=== PATIENT | female | born 1995 | race Caucasian/White ===

== ENCOUNTER → 2024-03-21 | Outpatient (CLI) | payer OTHER, SELFPAY ==
[2024-03-21 16:40] LABS: Absolute Lymphocyte Count 2.11 X10^3/uL (0.83-4.51); Absolute Neutrophil Count 11.4 X10^3/uL (2.0-7.7); Basophil# 0.05 X10^3/uL; Basophil% 0.3 % (0-1); Eosinophil# 0.08 X10^3/uL; Eosinophils% 0.6 % (0-5); Hematocrit 38.1 % (37-47); Hemoglobin 13.2 g/dL (12.0-15.0); Lymphocyte # 2.11 X10^3/ul (0.83-4.51); Lymphocyte % 14.6 % (19-41); Mean Corp Hgb Conc 34.6 g/dL (32-36); Mean Corpuscular Hgb 29.2 pg (27.0-32.0); Mean Corpuscular Volume 84.3 fL (81-99); Mean Platelet Vol. 9.9 fl (6.2-12.0); Monocyte# 0.74 X10^3/uL; Monocyte% 5.1 % (0-10); NRBC Flagged by Analyzer 0 % (0-5); Neutrophil # 11.44 X10^3/uL (2.7-7.7); Neutrophil % 79.1 % (47-70); Platelet Count 259 K/mm3 (150-450); RBC Distribution Width CV 11.8 % (11.6-14.6); Red Blood Count 4.52 M/mm3 (4.2-5.4); White Blood Count 14.5 K/mm3 (4.4-11.0)
[2024-03-21 17:18] LABS: HIV - WCH Non-Reactive (Nonreactive); Hepatitis B Surface Antigen Non-Reactive (Nonreactive); Hepatitis C Antibody Non-Reactive (Nonreactive); Rubella IgG Reactive (Nonreactive); Syphilis Antibodies Non-reactive
== END | disposition home or self-care (01) ==
PROVIDERS: Referring Provider Registered Nurse; Visit Provider Registered Nurse
DX: Z34.00 Encounter for supervision of normal first pregnancy, unspecified trimester (principal)
CPT/HCPCS: 36415; 85025; 86703; 86762; 86780; 86803; 86850; 86900; 86901; 87086; 87088; 87186; 87340

== ENCOUNTER 2024-08-23 22:05 | Outpatient (CLI) | payer OTHER, SELFPAY ==
--- OUTSIDE RECORDS SUMMARY | 2024-08-23 22:17 | XMS RPT_ITS | CCD ---
Author Organization [facility] Care Team Providers Care Vp Integration Name Role Phone Xochilt Rush Attending Unavailable NOT, DEFINED Primary Care Unavailable Luana Gastelum Attending Unavailable Xochilt Rush Referring Unavailable Xochilt Rush Attending Unavailable NOT, DEFINED Primary Care Unavailable Problems Problem Classification Problem Date Documented Da te Episodic/Chronic Other and delivery including normal (1 source) Encounter for supervision of normal first , unspecified trimester; Translations: [Encounter for supervision of normal first , unspecified trimester] Onset: 04-07-2024 Episodic Results Test Name Value Interpretation Reference Range Facil ity Urine Cultureon 03-23-2024 URC Presumptive E. coli [place] Count 25,000-50,000 Presumptive E. coli: REACTION Ampicillin Islt DESTIN >=32 Ampicillin+Sulbac Islt DESTIN 4 S Cefepime Islt DESTIN <=0.12 S cefTRIAXone Islt DESTIN <=0.25 S Ciprofloxacin Islt DESTIN >=4 R B-Lactamase Extended Susc Islt NEG Gentamicin Islt DESTIN <=1 S levoFLOXacin Islt DESTIN >=8 R Meropenem Islt DESTIN <=0.25 S Nitrofurantoin Islt DESTIN <=16 S Pip+Tazo Islt DESTIN <=4 S TMP SMX Islt DESTIN <=20 S Normal [facility] Comment on above: Performed By: #### M 100.2200 #### [facility] [address] [place], [place], [id number] CBC W/Diff, Automatedon Absolute Lymph 2.11 X10 3/uL Normal 0.83-4.51 [facility] Comment on above: Performed By: #### L 3890.6300, L509.8000, BTS, L509.4005, L3890.6005, L3890.6100, L100.0100 #### [facility] [address] [place], [address] Absolute Neut 11.4 X10 3/uL High 2.0-7.7 [facility] Comment on above: Performed By: #### L 3890.6300, L509.8000, BTS, L509.4005, L3890.6005, L3890.6100, L100.0100 #### [facility] [address] [place], [address] Basophils/100 WBC (Bld) 0.3 % Normal 0-1 [facility] Comment on above: Performed By: #### L 3890.6300, L509.8000, BTS, L509.4005, L3890.6005, L3890.6100, L100.0100 #### [facility] [address] [place], [address] Eosinophils/100 WBC (Bld) 0.6 % Normal 0-5 [facility] Comment on above: Performed By: #### L 3890.6300, L509.8000, BTS, L509.4005, L3890.6005, L3890.6100, L100.0100 #### [facility] [address] [place], [address] Erythrocyte distribution width (RBC) [Ratio] 11.8 % Normal 11.6-14.6 [facility] Comment on above: Performed By: #### L 3890.6300, L509.8000, BTS, L509.4005, L3890.6005, L3890.6100, L100.0100 #### [facility] [address] [place], [address] Hematocrit (Bld) [Volume fraction] 38.1 % Normal 37-47 [facility] Comment on above: Performed By: #### L 3890.6300, L509.8000, BTS, L509.4005, L3890.6005, L3890.6100, L100.0100 #### [facility] [address] [place], [address] Hemoglobin (Bld) [Mass/Vol] 13.2 g/dL Normal 12.0-15.0 [facility] Comment on above: Performed By: #### L 3890.6300, L509.8000, BTS, L509.4005, L3890.6005, L3890.6100, L100.0100 #### [facility] [address] [place], [address] IG% 0.300 Normal 0.0-0.9 [facility] Comment on above: Result Comment: IG% - Immature Granulocytes (promyelocytes, myelocytes and metamyelocytes) > 1% indicates that a LEFT SHIFT is Present. Performed By: #### L 3890.6300, L509.8000, BTS, L509.4005, L3890.6005, L3890.6100, L100.0100 #### [facility] [address] [place], [address] Lymphocytes/100 WBC (Bld) 14.6 % Low 19-41 [facility] Comment on above: Performed By: #### L 3890.6300, L509.8000, BTS, L509.4005, L3890.6005, L3890.6100, L100.0100 #### [facility] [address] [place], [address] MCH (RBC) [Entitic mass] 29.2 pg Normal 27.0-32.0 [facility] Comment on above: Performed By: #### L 3890.6300, L509.8000, BTS, L509.4005, L3890.6005, L3890.6100, L100.0100 #### [facility] [address] [place], [address] MCHC (RBC) [Mass/Vol] 34.6 g/dL Normal 32-36 [facility] Comment on above: Performed By: #### L 3890.6300, L509.8000, BTS, L509.4005, L3890.6005, L3890.6100, L100.0100 #### [facility] [address] [place], [address] MCV (RBC) [Entitic vol] 84.3 fL Normal 81-99 [facility] Comment on above: Performed By: #### L 3890.6300, L509.8000, BTS, L509.4005, L3890.6005, L3890.6100, L100.0100 #### [facility] [address] [place], [address] Monocytes/100 WBC (Bld) 5.1 % Normal 0-10 [facility] Comment on above: Performed By: #### L 3890.6300, L509.8000, BTS, L509.4005, L3890.6005, L3890.6100, L100.0100 #### [facility] [address] [place], [address] Neutrophils/100 WBC (Bld) 79.1 % High 47-70 [facility] Comment on above: Performed By: #### L 3890.6300, L509.8000, BTS, L509.4005, L3890.6005, L3890.6100, L100.0100 #### [facility] [address] [place], [address] Nucleated RBC (Bld) [#/Vol] 0 10*3/uL Normal 0-5 [facility] Comment on above: Performed By: #### L 3890.6300, L509.8000, BTS, L509.4005, L3890.6005, L3890.6100, L100.0100 #### [facility] [address] [place], [address] Platelet mean volume (Bld) [Entitic vol] 9.9 fL Normal 6.2-12.0 [facility] Comment on above: Performed By: #### L 3890.6300, L509.8000, BTS, L509.4005, L3890.6005, L3890.6100, L100.0100 #### [facility] [address] [place], [address] Platelets (Bld) [#/Vol] 259 10*3/uL Normal 150-450 [facility] Comment on above: Performed By: #### L 3890.6300, L509.8000, BTS, L509.4005, L3890.6005, L3890.6100, L100.0100 #### [facility] [address] [place], [address] RBC (Bld) [#/Vol] 4.52 10*6/uL Normal 4.2-5.4 [facility] Comment on above: Performed By: #### L 3890.6300, L509.8000, BTS, L509.4005, L3890.6005, L3890.6100, L100.0100 #### [facility] [address] [place], [address] RDW SD 36.0 fl Normal 35.1-43.9 [facility] Comment on above: Performed By: #### L 3890.6300, L509.8000, BTS, L509.4005, L3890.6005, L3890.6100, L100.0100 #### [facility] [address] [place], [address] WBC (Bld) [#/Vol] 14.5 10*3/uL High 4.4-11.0 [facility] Comment on above: Performed By: #### L 3890.6300, L509.8000, BTS, L509.4005, L3890.6005, L3890.6100, L100.0100 #### [facility] [address] [place], [place], [id number] HIV - WCHon 03-21-2024 HIV Non-Reactive Normal Nonreactive [facility] Comment on above: Order Comment: Reaso n for Exam: Performed By: #### L 3890.6300, L509.8000, BTS, L509.4005, L3890.6005, L3890.6100, L100.0100 #### [facility] [address] [place], [place], [id number] Hepatitis B Surface Antigeno n 03-21-2024 HEP B Surf Ag Non-Reactive Normal [facility] Comment on above: Order Comment: Reaso n for Exam: Performed By: #### L 3890.6300, L509.8000, BTS, L509.4005, L3890.6005, L3890.6100, L100.0100 #### [facility] [address] [facility] [place], [place], [id number] Hepatitis C Antibodyon 03-21 Hepatitis C AB Non-Reactive Normal [facility] Comment on above: Order Comment: Reaso n for Exam: Result Comment: Non Reactive: < 0.8 Equivocal: >/= 0.8 to < 1.0 Reactive: >/= 1.0 The CDC requires that a reactive/equivocal HCV antibody result be sent out for confirmation. HCV Quant by PCR testing. Performed By: #### L 3890.6300, L509.8000, BTS, L509.4005, L3890.6005, L3890.6100, L100.0100 #### [facility] [address] 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 Office Visit Report [facility] [address], [address] [place] [address] OFFICE VISIT Date of Service: 03/21/24 MR#: [id number] Acct: [id number] Name: CECIL ROMANO Rep #: [id number] : 1995 Provider: DONNELL curran Age/Sex: 28/F [place] [facility] [place]: Signed Intake Vital Signs 03/21/24 13:08 03/21/24 14:04 Height 5 ft 4 in Weight: 136 lb 6 oz BMI 23.3 BP 133/90 H 123/87 H Intake Visit Reasons: NEW OB 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: No Is patient in pain?: No Allergies No Known Allergies Allergy (Verified 03/21/24 13:08) Medications ???Medication ???Instructions ???Recorded ???Confirmed ???Type multivitamin no.47-iron fum 27 cap PO 03/07/24 03/07/24 History mg-folate no.1 1 mg-dha 300 mg capsule (PNV-DHA) vitamin B complex 1 cap PO QDAY 03/07/24 03/07/24 Hi story Last Menstrual Period: 01/09/24 Zika: Zika virus screening: Negative : No Have you fallen in the past year?: No PFSH PFSH Surgical History H/O inguinal hernia repair Family History Mother Hypertension Social History adopted: No household members: spouse current occupational status: employed 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 current occupational exposures/hazards: No pets and animals: Yes (Outside-2 cats) pets and animals: cat(s) history of recent travel: No sexually active: Yes Smoking Status: Never smoker alcohol intake: current alcohol intake frequency: holidays/special occasions only details: not while substance use type: does not use well-balanced diet: daily or most days caffeine: Yes Type: coffee Number of servings: 1 eating out: rarely or never during the past year weight has: decreased > 10 lbs what type of physical activity do you participate in: walking and other details: body weight exercises frequency: daily duration: 15-30 minutes/day joanne/mormon: Buddhist seatbelt use: sometimes do you feel safe at home: Yes additional 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 OB Visit NORBERTO Calculator Estimated Delivery Date Method Current WG Current Estimate 10/15/24 LMP (Certain) 10w 2d Comments: HIV: Urine Culture: Sequential Screen: NIPT Screen: Estimated Due Date: 10/15/24 Expected Delivery Route/Plan Labor Preferences- CB/BF classes: [] labor support person: [] labor intervention preferences: [] pain management options preferred: [] cut cord/dad catch: [] : [] PP control planned: [] discussed possible routes of delivery and associated risks: [] special requests: [] Specific Issue/Plans Covid status: [] Flu vaccine: [] Tdap vaccine: [] Rhogam: [] LARC form signed: [] Problem list reviewed and updated with the most current plan of care details and appropriate orders placed. Relevant counseling for the gestational age provided. Continue routine care and follow up unless otherwise noted in visit notes/problem list details Initial Weight: 136 lb Date -???-???-???-???-???-? ??-???-???-???-???-??? -???- EGA Weight BP Urine Prot -???-???-???-???-???-? ??-???-???-???-???-??? -???- Glucose FHR FuHt Pres Dilation -???-???-???-???-???-? ??-???-???-???-???-??? -???- Effaced St Visit Note 03/21/24 -???-???-???-???-???-? ??-???-???-???-???-??? -???- 10w 2d 136 lb 6 oz (+6 oz) 133/90 123/87 -???-???-???-???-???-? ??-???-???-???-???-??? -???- 168 -???-???-???-???-???-? ??-???-???-???-???-??? -???- LC- crl con with LMP. declines nipt/carrier screening. declines pap smear. gc/ct due with dirty catch next visit as declines any vaginal exam. LC- crl 1.3cm con with LMP. declin es nipt/carrier screening. declines pap smear. gc/ct due with dirty catch next visit as declines any vaginal exam. LC- crl 1.3cm con with LMP. declin es nipt/carrier screening. declines pap smear. gc/ct due with dirty catch next visit as declines any vaginal exam d/t hx of undisclosed trauma. Menstrual History Last Menstrual Period: 01/09/24 Reported LMP: definite Frequency in days: 27-29 days Antepartum Record Genetic Screening: Congenital Heart Defect: Other, Neural Tube Defect: Other, Hemoglobinopathy Or Carrier: Other, Cystic Fibrosis: Other, Chromosome Abnormality: Other, Ru-Sachs: Other, Hemophilia: Other, Intellectual Disability/Autism: Other, Recurrent Loss/Stillbirth: (more content not included)... Normal [facility] Rubella IgGon 03-21-2024 Rubella IgG Reactive Normal Nonreactive [facility] Comment on above: Order Comment: Reaso n for Exam: Result Comment: Anti body Results Interpretation of Immune Status Non Reactive Presumed Non-Immune Equivocal Equivocal Reactive Presumed Immune Performed By: #### L 3890.6300, L509.8000, BTS, L509.4005, L3890.6005, L3890.6100, L100.0100 #### [facility] [address] [place], [address] Type AND Screenon 03-21-2024 Ab SCREEN GEL Negative Normal [facility] Comment on above: Order Comment: PN Performed By: #### L 3890.6300, L509.8000, BTS, L509.4005, L3890.6005, L3890.6100, L100.0100 #### [facility] [address] [place], [address] Encounters Encounter Date Encounter Type Care Provider Facility Start: 05-06-2024 ambulatory DEFINED NOT Facility:[facility] Start: 03-21-2024 End: 03-21-[place] [facility] [place] [place] Start: 03-21-2024 End: 03-21-2024 [facility] Facility:[facility] Payers Date Payer Category Payer Self-pay 2024 Unknown [id number] Unknown [id number] Unknown [id number] Unknown [id number] Summary Purpose Family History No Family History Records Found Advance Directives No Advanced Directives Records Found Additional Source Comments INFORMATION SOURCE (unrecogn ized section and content) DATE CREATED AUTHOR 05/04/2024 [facility] FOR RECORDS PERTAINING TO PATIENTS WHO ARE OR HAVE BEEN ENROLLED IN A CHEMICAL DEPENDENCY/SUBSTANCEABUSE PROGRAM, SOME INFORMATION MAY BE OMITTED. This clinical summary was aggregated from multiple sources. Caution should be exercised in using it in the provision of clinical care. This summary normalizes information from multiple sources, and as a consequence, information in this document may materially change the coding, format and clinical context of patient data. In addition, data may be omitted in some cases. CLINICAL DECISIONS SHOULD BE BASED ON THE PRIMARY CLINICAL RECORDS. [facility]. provides no warranty or guarantee of the accuracy or completeness of information in this document.
[2024-08-23 22:31] VITALS: BP 102/55; PULSE 96; RESP 18; TEMP 36.7; O2SAT 98
[2024-08-23 22:36] VITALS: PULSE 93; O2SAT 99; BMI 26.3
[2024-08-23 22:50] LABS: Color, Urine Yellow (Yellow); Glucose, Dipstick Normal (Normal); Leukocyte Esterase-Dipstick 25 /ul (Negative); Nitrite-Dipstick Negative (Negative); Occult Blood-Urine 25 /ul (Negative); Protein-Dipstick 30 mg/dl (Negative); Specific Gravity, Urine 1.020 (1.002-1.030); Urine Bilirubin Dipstick Negative (Negative)
[2024-08-23 23:02] LABS: Ketone-Dipstick 150 mg/dl (Negative)
[2024-08-23] MEDS: Lactated Ringers 500 ML 999 ML IV (23:16)
--- NOTE | 2024-08-24 00:12 | US_ITS ---
PROCEDURE: KIDNEY AND BLADDER 08/23/2024 REASON FOR EXAM: R/O KIDNEY STONE TECHNIQUE: KIDNEY AND BLADDER COMPARISON: None. FINDINGS: Right kidney measures 20.0 cm. Left kidney measures 12.3 cm. Moderate right mild left hydroureteronephrosis. The urinary bladder is unremarkable. US/Kidney and Bladder IMPRESSION: Bilateral hydronephrosis. Reading Location: [place] [address]
[2024-08-24 04:10] VITALS: BP 85/52; PULSE 85; PULSE 94; O2SAT 96
[2024-08-24 04:12] VITALS: RESP 16; TEMP 37
[2024-08-24 04:13] VITALS: BP 101/59; PULSE 108
--- NOTE | 2024-09-05 16:38 | OB.TRI.HP_ITS ---
HPI - General General Date of Admission: 08/23/24 HPI Narrative CECIL ROMANO, is a 28 F who presents as a community advocate patient at 32.3 weeks with right flank pain with nausea and vomiting. denies fevers. Maternal Data Information NORBERTO Calculator Estimated Delivery Date Method Current WG Current Estimate 10/15/24 Manual 34w 2d PFSH PFSH Medical History (Updated 09/05/24 @ 16:40 by Xochilt Rush CNM) Nephrolithiasis Pyelonephritis affecting Home Medications ?Medication ?Instructions ?Recorded ?Last Taken ?Type multivitamin no.47-iron fum 27 1 cap PO DAILY pregnanc y 03/07/24 08/22/24 History mg-folate no.1 1 mg-dha 300 mg capsule (PNV-DHA) vitamin B complex 1 cap PO QDAY 03/07/2408/20 History famotidine 20 mg tablet (Pepcid) 20 mg PO BID #60 tabs 09/01/24 Unknown Rx Allergy/AdvReac Type Severity Reaction Status Date / Time No Known Allergies Allergy Verified 09/01/24 14:06 Family History Mother Hypertension Surgical History H/O inguinal hernia repair Social History adopted: No household members: spouse current occupational status: employed 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 current occupational exposures/hazards: No pets and animals: Yes (Outside-2 cats) pets and animals: cat(s) history of recent travel: No sexually active: Yes Smoking Status: Never smoker alcohol intake: current alcohol intake frequency: holidays/special occasions only details: not while substance use type: does not use well-balanced diet: daily or most days caffeine: Yes Type: coffee Number of servings: 1 eating out: rarely or never during the past year weight has: decreased > 10 lbs what type of physical activity do you participate in: walking and other details: body weight exercises frequency: daily duration: 15-30 minutes/day joanne/uatsdin: Mormon seatbelt use: sometimes do you feel safe at home: Yes 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 1 Elective abortions Hx Para 0 Spontaneous abortions Hx # Term Pregnancies Ectopic pregnancies Hx # Pregnancies Multiple births # of living children Visit Details Expected Delivery Route/Plan Labor Preferences- CB/BF classes: [] labor support person: [] labor intervention preferences: [] pain management options preferred: [] cut cord/dad catch: [] : [] PP control planned: [] discussed possible routes of delivery and associated risks: [] special requests: [] Plans Covid status: [] Flu vaccine: [] Tdap vaccine: [] Rhogam: [] LARC form signed: [] Problem list reviewed and updated with the most current plan of care details and appropriate orders placed. Relevant counseling for the gestational age provided. Continue routine care and follow up unless otherwise noted in visit notes/problem list details OB Flowsheet Initial Weight: Not Recorded Date -?-?-?-?-?-?-?-?-?-?-?-?- EGA Weight BP Urine Prot -?-?-?-?-?-?-?-?-?-?-?-?- Glucose FHR FuHt Pres Dilation -?-?-?-?-?-?-?-?-?-?-?-?- Effaced St Visit Note 09/01/24 -?-?-?-?-?-?-?-?-?-?-?-?- 33w 5d 161 lb 6 oz 110/73 -?-?-?-?-?-?-?-?-?-?-?-?- 150 32 Cephalic -?-?-?-?-?-?-?-?-?-?-?-?- SM- discharged maikel ley from [facility]. no vb lof good fm no regular ctx NST FHR Rate Baby A Baseline: 145 Uterine Activity:: none Assessment & Plan (1) Right flank pain: PLAN: Plan Patient presents for triage evaluation secondary to right flank pain. negative kidney stones, improved pain with fluids and morphine. potentially stone that passed. FHT: Moderate variability reactive no decelerations category I tracing [employer]: no Contractions Assessment and plan: Reactive NST, reassuring maternal and status patient discharged to home to follow-up if fever presents, pain is not improved. follow up with community advocate. . See problem list details for additional plan information. Charges/Coding Multi Select Codes Urinary/Genital Urinary/Genital CPT Codes: 93372-21 non-stress test Interp
== END 2024-08-24 04:20 | disposition home or self-care (01) ==
LOC: WPOUT 22:15 → WP 22:16
PROVIDERS: Visit Provider Registered Nurse
DX: O26.893 Other specified pregnancy related conditions, third trimester (principal); R10.9 Unspecified abdominal pain; O21.2 Late vomiting of pregnancy; Z3A.32 32 weeks gestation of pregnancy
CPT/HCPCS: 96374; 96375 ×2; 96376; 96361; 59025; 59050; 76770; 81002; 99221; G0378; J2405

== ENCOUNTER 2024-08-25 00:59 | Inpatient (IN) | payer OTHER, SELFPAY ==
[2024-08-24] VITALS (94 sets, daily range): BP systolic 79–108; BP diastolic 40–57; PULSE 90–199; RESP 20–40; TEMP 36.8–39.2; O2SAT 82–98; BMI 26.4
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
[2024-08-24] MEDS: Lactated Ringers 1,000 ML 999 ML IV ×2 (14:47→18:18)
[2024-08-24 15:20] LABS: Hematocrit 32.9 % (37-47); Hemoglobin 11.4 g/dL (12.0-15.0); Immature Granulocytes Count 0.260 X10^3/uL (0.0-0.0); Mean Corp Hgb Conc 34.7 g/dL (32-36); Mean Corpuscular Volume 84.4 fL (81-99); Mean Platelet Vol. 9.7 fl (6.2-12.0); NRBC Flagged by Analyzer 0 % (0-5); POSITIVE DIFFERENTIAL YES; Platelet Count 150 K/mm3 (150-450); RBC Distribution Width CV 12.1 % (11.6-14.6); RBC Distribution Width SD 36.7 fl (35.1-43.9); Red Blood Count 3.90 M/mm3 (4.2-5.4); White Blood Count 26.6 K/mm3 (4.4-11.0)
[2024-08-24 15:23] LABS: Differential Indicated SCAN CRITERIA MET
[2024-08-24] MEDS: Lactated Ringers 1,000 ML 150 ML IV (15:38)
[2024-08-24 15:48] LABS: AST(SGOT) 22 U/L (<=31); Alanine Aminotransfer ALT/SGPT 15 U/L (<=34); Albumin, Serum 3.4 g/dL (3.5-5.0); Alkaline Phosphatase 220 U/L (35-104); Anion Gap 12 (5-15); BUN 8 mg/dL (4-19); BUN/Creat Ratio 8.1 RATIO (10-20); Calcium,Total 8.9 mg/dL (7.6-11.0); Carbon Dioxide 20.0 mmol/L (21.0-32.0); Chloride 102 mmol/L (98-108); Estimated Creatinine Clearance 77.42 ml/min (50-250); Globulin 3.0 g/dL (2.2-4.2); Glucose 114 mg/dL (70-99); Lipase 17 U/L (13-75); Potassium 3.6 mmol/L (3.3-5.1)
[2024-08-24 16:47] LABS: Differential Comment SCANNED
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
[2024-08-24 18:45] LABS: Partial Thromboplast Time 28.7 Seconds (24.1-36.2); Prothrombin Time (Protime)PT. 14.7 SECONDS (11.7-14.9)
[2024-08-24 19:21] LABS: Anion Gap 13 (5-15); BUN 8 mg/dL (4-19); BUN/Creat Ratio 7.9 RATIO (10-20); Calcium,Total 8.9 mg/dL (7.6-11.0); Carbon Dioxide 20.8 mmol/L (21.0-32.0); Chloride 100 mmol/L (98-108); Estimated Creatinine Clearance 73.80 ml/min (50-250); Glucose 117 mg/dL (70-99); Magnesium 1.5 mg/dL (1.5-2.2); Potassium 3.2 mmol/L (3.3-5.1)
[2024-08-24] MEDS: KCL 20MEQ in 0.9% NS 20 MEQ/1,000 ML IV.SOLN. 150 MEQ IV (20:33)
[2024-08-24] MEDS: 0.9% Normal Saline (1000mL) 1,000 ML 1000 ML IV (21:21)
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
[2024-08-24] MEDS: Piperacil/Tazobactam 3.375 GM in 0.9% Normal Saline (50mL MB+) 50 ML IV (21:22)
--- NOTE | 2024-08-24 21:30 | RAD_ITS ---
PROCEDURE: CHEST 1 VIEW (PORTABLE) 08/24/2024 REASON FOR EXAM: TACHYPNEA TECHNIQUE: Frontal view of the chest. COMPARISON: No FINDINGS: Rotated patient. Normal heart size. Well inflated lungs. No consolidation, effusion, or pneumothorax. RAD/Chest 1 View (Portable) IMPRESSION: No acute findings Reading Location: [facility]-
[2024-08-24 22:23] LABS: Reflex Lactate? Y
--- NOTE | 2024-08-24 22:32 | PCM.HOSP.N ---
Hospitalist Note Called by Dr. Mckenzie around 9pm to discuss the patient. Patient is 32 weeks with her first baby. She came in yesterday evening with flank pain and concern for UTI. She had no fevers at the time and BP was normal. Renal ultrasound was obtained and showed bilateral hydronephrosis (common in ), no other abnormalities. Patient was discharged home early in the morning. She presented again this evening now with fever/chills and ongoing flank pain concerning for pyelonephritis. Labs notable for WBC count 26,000 with neutrophil predominance, lactate 2.1. Vitals notable for sinus tachycardia to the 110s, initial BP in the 80s over 40s. Given suspected urosepsis, patient was given an approximate 30 cc/kg fluid bolus of 2.5 L. BP improved to the 100s over 50s. After the fluids, patient was noted to be tachypneic with oxygen saturation dropping to the low 90s so chest x-ray was obtained. Chest x-ray on my read shows only mild vascular congestion, otherwise is unremarkable. I saw the patient at bedside around 9:30 PM. Patient was fatigued and flushed appearing, and heart rate remained in the low 100s on exam. She reported generally feeling ill with malaise. She denied any specific pain or discomfort currently. was present at bedside as well. Patient presentation seems very consistent with urosepsis. Urine culture and blood cultures have been ordered. Patient has received approximately 3 L of IV fluids total. Recommend continuing treatment with IV Zosyn. Can consider small fluid boluses if needed over the course of tonight but if patient becomes hypoxic, would hold on further fluids. If patient does become hypotensive with MAP less than 65, recommend moving patient up to the ICU for initiation of low-dose Levophed. Patient will continue to be monitored closely.
[2024-08-25] VITALS (72 sets, daily range): BP systolic 69–119; BP diastolic 33–80; PULSE 93–148; RESP 25–46; TEMP 36.4–38.6; O2SAT 91–98; BMI 27.8
--- NOTE | 2024-08-25 00:27 | PCM.PN.BLA ---
Progress Note patient reevaluated for decresaed MAP- HR around 100, less tachypnic and feeling better overall, fever has now broke and temp is 98.6. urine output only 200cc. breathing easy with occasional cough, discussed with hospitalist and will give additional liter bolus of fluid, continue close monitoring, physician to remain on floor and reevaluate in 1 hour after fluid bolus. Assessment & Plan Assessment/Plan (1) Sepsis: (2) Pyelonephritis affecting : (3) History of trauma: (4) Supervision of normal first : (5) : QUALIFIERS: Weeks of gestation: 10 weeks Qualified Code(s): Z3A.10 - 10 weeks gestation of (6) Infertility: (7) Family history of recurrent miscarriage:
[2024-08-25] MEDS: 0.9% Normal Saline (1000mL) 1,000 ML 999 ML IV (00:55)
--- NOTE | 2024-08-25 01:03 | PCM.CONS.GEN ---
Assessment & Plan Assessment/Plan (1) Sepsis: (2) Pyelonephritis affecting : PLAN: Plan Patient is a 28-year-old female who presented [facility] on 08/24/2024 with fevers and flank pain concerning for UTI with pyelonephritis and sepsis. 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 Medicine consulted for assistance with medical management. 1. Sepsis secondary to acute pyelonephritis ? ELEVATOR CONSTRUCTOR HELPER service primary. Initial admitted to the [facility] but then transferred up to the ICU for concern for septic shock. UA mildly infectious appearing, renal ultrasound with bilateral hydronephrosis. Met sepsis criteria on admit with hypotension, tachycardia, leukocytosis, elevated lactic acid and presumed urinary source. Given 3.5 L of IV fluids total to this point. Had low BP readings after these fluids to the 70s systolic in the WP, but on arrival to the ICU BP was in the 90s over 50s and is remaining stable. Continue IV Zosyn. Follow-up urine and blood cultures. Okay for low-dose Levophed if needed. 2. Third trimester of first ? Patient is 32 weeks , ELEVATOR CONSTRUCTOR HELPER primary as above. Per OB, baby has been doing well on heart monitoring which will remain in place while patient is hospitalized. 3. Mild hypokalemia ? Potassium 3.2 on admit. Mag 1.5, Phos 2.4. Will replete electrolytes as needed. 4. Normocytic anemia with mild thrombocytopenia ? Hemoglobin 11.4 on admit, dropped to 9.4 after heavy IV fluid resuscitation. Platelet count 112 after IV fluid resuscitation. No active signs of bleeding noted. LFTs are normal. Suspect mild anemia and thrombocytopenia are due to additional plasma volume and blood in setting of . Monitor daily CBC. DVT prophylaxis: Low risk, ambulate Total clinical time spent by myself addressing the patient's medical issues, reviewing all the data, and collaborating with patient's care team: 50 minutes. HPI Consult Data Date of Consult: 08/25/24 HPI Narrative Reason for Consultation: Medical management HPI Narrative: CECIL ROMANO, is a 28 F who presented to [facility] on 08/24/2024 with worsening flank pain and fevers. Patient is 32 weeks and [facility] She was found to have UTI with suspected pyelonephritis and sepsis. Her MAPs were borderline despite adequate IV fluid resuscitation so she was transferred up to the ICU early this morning for further management. Hospitalist was consulted for assistance with management. I [facility] the [facility] this evening, see my quick note for further details. Shortly after arrival to the ICU patient's blood pressures were noted to be in the 90s over 50s. She does remain tachycardic to the 100s to low 110s. 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 current occupational exposures/hazards: No pets and animals: Yes (Outside-2 cats) pets and animals: cat(s) history of recent travel: No sexually active: Yes Smoking Status: Never smoker alcohol intake: current alcohol intake frequency: holidays/special occasions only details: not while substance use type: does not use well-balanced diet: daily or most days caffeine: Yes Type: coffee Number of servings: 1 eating out: rarely or never during the past year weight has: decreased > 10 lbs what type of physical activity do you participate in: walking and other details: body weight exercises frequency: daily duration: 15-30 minutes/day joanne/bahai: Muslim seatbelt use: sometimes do you feel safe at home: Yes 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 Constitutional Constitutional: Reports chills, fatigue, fever(s) and malaise Eyes Eyes: Denies change in vision Cardiovascular Cardiovascular: Denies chest pain Respiratory/Chest Respiratory/Chest: Denies shortness of breath at rest Gastrointestinal Gastrointestinal: Denies abdominal pain Genitourinary Genitourinary: Reports dysuria and other Details: Right flank pain Physical Exam Const alert, oriented x3 and average body habitus Constitutional Narrative: Young Oriental Orthodox female, 32 weeks , fatigued and flushed appearing, otherwise laying back in bed and answering questions appropriately. General Appearance: cooperative HEENT normocephalic, head/scalp atraumatic, hearing grossly normal bilaterally, nasal mucous membranes and turbinates normal and moist oral mucous membranes Eyes PERRL, EOMs intact bilaterally and conjunctivae normal Neck full ROM Chest inspection of chest normal Resp normal respiratory effort, normal air movement, no use of accessory muscles and clear to auscultation bilaterally Cardio no murmurs and peripheral pulses 2+ throughout Cardio Narrative: Tachycardic, regular rhythm. GI normal to inspection, nondistended, normoactive bowel sounds, soft to palpation, non-tender and non-distended Narrative: 32 weeks . heart monitoring in place. Bladder / Kidney Exam: bladder normal to palpation and CVA tenderness right Back/Spine normal ROM Extremity normal to inspection, full ROM and no pedal edema Skin no rashes or lesions noted Psych mental status grossly normal Lab / Micro Data 08/25/24 01:25 08/25/24 01:25 Labs: Laboratory Results - last 24 hr 08/24/24 14:45: WBC 26.6 H, RBC 3.90 L, Hgb 11.4 L, Hct 32.9 L, MCV 84.4, MCH 29.2, MCHC 34.7, RDW Std Deviation 36.7, RDW Coeff of Joe 12.1, Plt Count 150, MPV 9.7, Immature Gran % (Auto) 1.000 H, Neut % (Auto) 92.7 H, Lymph % (Auto) 1.6 L, Armstrong % (Auto) 4.5, Eos % (Auto) 0.0, Baso % (Auto) 0.2, Absolute Neuts (auto) 24.6 H, Absolute Lymphs (auto) 0.42 L, Nucleated RBC % 0, Differential Comment SCANNED, Platelet Estimate ADEQUATE, Sodium 135, Potassium 3.6, Chloride 102, Carbon Dioxide 20.0 L, Anion Gap 12, BUN 8, Creatinine 1.02, Estim Creat Clear Calc 77.42, Est GFR (MDRD) Non-Af 76, BUN/Creatinine Ratio 8.1 L, Glucose 114 H, Calcium 8.9, Total Bilirubin 0.71, AST 22, ALT 15, Alkaline Phosphatase 220 H, Total Protein 6.4, Albumin 3.4 L, Globulin 3.0, Albumin/Globulin Ratio 1.1, Lipase 17 08/24/24 18:11: PT 14.7, INR 1.1, APTT 28.7, Sodium 134, Potassium 3.2 L, Chloride 100, Carbon Dioxide 20.8 L, Anion Gap 13, BUN 8, Creatinine 1.07, Estim Creat Clear Calc 73.80, Est GFR (MDRD) Non-Af 72, BUN/Creatinine Ratio 7.9 L, Glucose 117 H, Lactic Acid 2.1 H*, Calcium 8.9, Phosphorus 2.4 L, Magnesium 1.5, Blood Type A POSITIVE, Antibody Screen NEGATIVE 08/24/24 22:10: Lactic Acid 2.4 H* Imaging Radiology Impression Chest X-Ray 08/24/24 21:30 IMPRESSION: No acute findings [facility] Charges/Coding Visit Charges Inpatient E&M: 37804 Subs Hosp L3
--- NOTE | 2024-08-25 01:03 | PCM.PN.BLA ---
Progress Note 500cc bolus complete but persistent hypotension- transfer to ICU for further management.
[2024-08-25 01:38] LABS: Hematocrit 28.2 % (37-47); Hemoglobin 9.4 g/dL (12.0-15.0); Immature Granulocytes Count 0.600 X10^3/uL (0.0-0.0); Mean Corp Hgb Conc 33.3 g/dL (32-36); Mean Corpuscular Volume 86.0 fL (81-99); Mean Platelet Vol. 9.7 fl (6.2-12.0); NRBC Flagged by Analyzer 0 % (0-5); POSITIVE DIFFERENTIAL YES; POSITIVE MORPHOLOGY YES; Platelet Count 112 K/mm3 (150-450); RBC Distribution Width CV 12.1 % (11.6-14.6); RBC Distribution Width SD 37.9 fl (35.1-43.9); Red Blood Count 3.28 M/mm3 (4.2-5.4); White Blood Count 20.8 K/mm3 (4.4-11.0)
[2024-08-25 01:39] LABS: Differential Indicated SCAN CRITERIA MET
[2024-08-25 02:20] LABS: Reflex Lactate? Y
[2024-08-25 02:22] LABS: Anion Gap 13 (5-15); BUN 8 mg/dL (4-19); BUN/Creat Ratio 8.0 RATIO (10-20); Calcium,Total 8.2 mg/dL (7.6-11.0); Carbon Dioxide 18.2 mmol/L (21.0-32.0); Chloride 105 mmol/L (98-108); Estimated Creatinine Clearance 79.42 ml/min (50-250); Glucose 88 mg/dL (70-99); Potassium 3.3 mmol/L (3.3-5.1)
[2024-08-25 03:11] LABS: Differential Comment SCANNED
[2024-08-25] MEDS: 0.9% Saline Lock 10 ML Syringe IV ×3 (03:57→11:48)
[2024-08-25] MEDS: Magnesium Sulfate 2 GM in Dextrose 5%-Water (100mL Bag) 100 ML IV (03:57)
[2024-08-25] MEDS: Potassium Chloride Oral Tablet 20 MEQ 40 MEQ PO (03:57)
--- NOTE | 2024-08-25 06:00 | US_ITS ---
PROCEDURE: OB LIMITED (NO BIOMETRICS) 08/25/2024 REASON FOR EXAM: NO PRIOR ANATOMY SCAN TECHNIQUE: OB LIMITED (NO BIOMETRICS) COMPARISON: None FINDINGS Number: 1 Position: Vertex Placental Position: Fundal in position. Placental Abnormalities: No evidence of previa. ESTIMATED GESTATIONAL AGE: Baseline: 32 weeks and 5 days By Ultrasound: ESTIMATED DATE OF DELIVERY: Baseline: October 15, 2024. BIOPHYSICAL ASSESSMENT: Amniotic Fluid Volume: 4 cm Amniotic Fluid Index: 8.8 (8-24 cm normal range) Cardiac Motion: 148 beats per minute (average) Trunk and Limb Motion: Present. MATERNAL ANATOMY: Adnexa: Neither maternal ovary is successfully identified. US/OB Limited (No Biometrics) IMPRESSION: cardiac activity at 140 beats per minute. Normal amniotic fluid. Reading Location: [place] [id number]
--- OUTSIDE RECORDS SUMMARY | 2024-08-25 06:15 | XMS RPT_ITS | CCD ---
Author Organization [facility] Care Team Providers Care Foreman/Project Manager Name Role Phone Xochitl Rush Attending Unavailable NOT, DEFINED Primary Care Unavailable Luana Gastelum Attending Unavailable Xochilt Rush Referring Unavailable Xochilt Rush Attending Unavailable NOT, DEFINED Primary Care Unavailable Care Physician, Ирина Primary Primary Care Provider Unavailable Xochilt Rush CNM Attending Provider Medications Current Medications Medication Drug Class(es) Dates Sig (Normalized) Sig (Original) Multivit 84-Avad-Yijtnf 1-Dha (Pnv-Dha) 27 mg iron-1 mg -300 mg capsule (1 source) Start: 03-07-2024 Multivit 47-Cucf-Dczyog 1-Dha (Pnv-Dha) 27 mg iron-1 mg -300 [...] on 08-23-2024 Bilirubin Ql (U) Negative Negative [facility] Ketones Test strip Ql (U)Ord ered By: Xochilt Rush on 08-23-2024 Ketones Ql (U) 150 mg/dl Abnormal Negative [facility] Comment on above: CRITICAL VALUE SHAY D TO SOLANGE [id number] Fabby Ramsey.RESULTS READ BACK BY SAME. CRITICAL VALUE CALLED TO ILSA ELLIOTT ()08/23/242300 Fabby Ramsey.RESULTS READ BACK BY SAME. Previous reported result: 150 mg/dlEdited by: GANESH on 08/23/24:2302 AMENDED REPORT 08/23/24 2302 KETONE UR previously reported as: 150 mg/dl CRITICAL VALUE CALLED TO SOLANGE [id number] Fabby Ramsey.RESULTS READ BACK BY SAME. Nitrite Test strip Ql (U)Ord ered By: Xochilt Rush on 08-23-2024 Nitrite Ql (U) Negative Negative [facility] Protein Test strip Ql (U)Ord ered By: Xochilt Rush on 08-23-2024 Protein Ql (U) 30 mg/dl High Negative [facility] Urine clarityOrdered By: Jazz Rush on 08-23-2024 Clarity (U) Clear Clear [facility] Urine color determinationOrd ered By: Xochilt Rush on 08-23-2024 Color (U) Yellow Yellow [facility] Urine glucose detectionOrder ed By: Xochilt Rush on 08-23-2024 Glucose Ql (U) Normal mg/dl Normal [facility] Urine leukocyte esterase det ection by dipstickOrdered By: Xochilt Rush on 08-23-2024 Leukocyte esterase Test strip Ql (U) 25 /ul High Negative [facility] Urine pHOrdered By: Xochilt Rush on 08-23-2024 pH (U) 6.0 [pH] 5.0 - 8.0 [facility] Urine specific gravity measu rementOrdered By: Xochilt Rush on 08-23-2024 Specific gravity (U) [Rel density] 1.020 1.002-1.030 [facility] Urine urobilinogen measureme ntOrdered By: Xochilt Rush on 08-23-2024 Urobilinogen Ql (U) Normal mg/dl Normal [facility] Urine Cultureon 03-23-2024 URC Presumptive E. coli [place] Count 25,000-50,000 Presumptive E. coli: REACTION Ampicillin [...] TMP SMX Islt DESTIN <=20 S Normal [facility] Comment on above: Performed By: #### M 100.2200 #### [facility] [address] [place], [address] CBC W/Diff, Automatedon Absolute Lymph 2.11 X10 3/uL Normal 0.83-4.51 [facility] Comment on above: Performed By: #### L 3890.6300, L509.8000, BTS, L509.4005, L3890.6005, L3890.6100, L100.0100 #### [facility] [address] [place], [address] Absolute Neut 11.4 X10 3/uL High 2.0-7.7 [facility] Comment on above: Performed By: #### L 3890.6300, L509.8000, BTS, L509.4005, L3890.6005, L3890.6100, L100.0100 #### [facility] [address] [place], [address] Basophils/100 WBC (Bld) 0.3 % Normal 0-1 [facility] Comment on above: Performed By: #### L 3890.6300, L509.8000, BTS, L509.4005, L3890.6005, L3890.6100, L100.0100 #### [facility] [address] [place], [address] Eosinophils/100 WBC (Bld) 0.6 % Normal 0-5 [facility] Comment on above: Performed By: #### L 3890.6300, L509.8000, BTS, L509.4005, L3890.6005, L3890.6100, L100.0100 #### [facility] [address] [place], [address] Erythrocyte distribution width (RBC) [Ratio] 11.8 % Normal 11.6-14.6 [facility] Comment on above: Performed By: #### L 3890.6300, L509.8000, BTS, L509.4005, L3890.6005, L3890.6100, L100.0100 #### [facility] [address] [place], [address] Hematocrit (Bld) [Volume fraction] 38.1 % Normal 37-47 [facility] Comment on above: Performed By: #### L 3890.6300, L509.8000, BTS, L509.4005, L3890.6005, L3890.6100, L100.0100 #### [facility] [address] [place], [address] Hemoglobin (Bld) [Mass/Vol] 13.2 g/dL Normal 12.0-15.0 [facility] Comment on above: Performed By: #### L 3890.6300, L509.8000, BTS, L509.4005, L3890.6005, L3890.6100, L100.0100 #### [facility] [address] [place], [address] IG% 0.300 Normal 0.0-0.9 [facility] Comment on above: Result Comment: IG% - Immature Granulocytes (promyelocytes, myelocytes and metamyelocytes) > 1% indicates that a LEFT SHIFT is Present. Performed By: #### L 3890.6300, L509.8000, BTS, L509.4005, L3890.6005, L3890.6100, L100.0100 #### [facility] [address] [place], [address] Lymphocytes/100 WBC (Bld) 14.6 % Low 19-41 [facility] Comment on above: Performed By: #### L 3890.6300, L509.8000, BTS, L509.4005, L3890.6005, L3890.6100, L100.0100 #### [facility] [address] [place], [address] MCH (RBC) [Entitic mass] 29.2 pg Normal 27.0-32.0 [facility] Comment on above: Performed By: #### L 3890.6300, L509.8000, BTS, L509.4005, L3890.6005, L3890.6100, L100.0100 #### [facility] [address] [place], [address] MCHC (RBC) [Mass/Vol] 34.6 g/dL Normal 32-36 [facility] Comment on above: Performed By: #### L 3890.6300, L509.8000, BTS, L509.4005, L3890.6005, L3890.6100, L100.0100 #### [facility] [address] [place], [address] MCV (RBC) [Entitic vol] 84.3 fL Normal 81-99 [facility] Comment on above: Performed By: #### L 3890.6300, L509.8000, BTS, L509.4005, L3890.6005, L3890.6100, L100.0100 #### [facility] [address] [place], [address] Monocytes/100 WBC (Bld) 5.1 % Normal 0-10 [facility] Comment on above: Performed By: #### L 3890.6300, L509.8000, BTS, L509.4005, L3890.6005, L3890.6100, L100.0100 #### [facility] [address] [place], [address] Neutrophils/100 WBC (Bld) 79.1 % High 47-70 [facility] Comment on above: Performed By: #### L 3890.6300, L509.8000, BTS, L509.4005, L3890.6005, L3890.6100, L100.0100 #### [facility] [address] [place], [address] Nucleated RBC (Bld) [#/Vol] 0 10*3/uL Normal 0-5 [facility] Comment on above: Performed By: #### L 3890.6300, L509.8000, BTS, L509.4005, L3890.6005, L3890.6100, L100.0100 #### [facility] [address] [place], [address] Platelet mean volume (Bld) [Entitic vol] 9.9 fL Normal 6.2-12.0 [facility] Comment on above: Performed By: #### L 3890.6300, L509.8000, BTS, L509.4005, L3890.6005, L3890.6100, L100.0100 #### [facility] [address] [place], [address] Platelets (Bld) [#/Vol] 259 10*3/uL Normal 150-450 [facility] Comment on above: Performed By: #### L 3890.6300, L509.8000, BTS, L509.4005, L3890.6005, L3890.6100, L100.0100 #### [facility] [address] [place], [address] RBC (Bld) [#/Vol] 4.52 10*6/uL Normal 4.2-5.4 [facility] Comment on above: Performed By: #### L 3890.6300, L509.8000, BTS, L509.4005, L3890.6005, L3890.6100, L100.0100 #### [facility] [address] [place], [address] RDW SD 36.0 fl Normal 35.1-43.9 [facility] Comment on above: Performed By: #### L 3890.6300, L509.8000, BTS, L509.4005, L3890.6005, L3890.6100, L100.0100 #### [facility] [address] [place], [address] WBC (Bld) [#/Vol] 14.5 10*3/uL High 4.4-11.0 [facility] Comment on above: Performed By: #### L 3890.6300, L509.8000, BTS, L509.4005, L3890.6005, L3890.6100, L100.0100 #### [facility] [address] [place], [address] HIV - WCHon 03-21-2024 HIV Non-Reactive Normal Nonreactive [facility] Comment on above: Order Comment: Reaso n for Exam: Performed By: #### L 3890.6300, L509.8000, BTS, L509.4005, L3890.6005, L3890.6100, L100.0100 #### [facility] [address] [place], [place], [address] Hepatitis B Surface Antigeno n 03-21-2024 HEP B Surf Ag Non-Reactive Normal Nonreactive [facility] Comment on above: Order Comment: Reaso n for Exam: Performed By: #### L 3890.6300, L509.8000, BTS, L509.4005, L3890.6005, L3890.6100, L100.0100 #### [facility] [address] [place], [place], [address] Hepatitis C Antibodyon 03-21 Hepatitis C AB Non-Reactive Normal Nonreactive [facility] Comment on above: Order Comment: Reaso n for Exam: Result Comment: Non Reactive: < 0.8 Equivocal: >/= 0.8 to < 1.0 Reactive: >/= 1.0 The CDC requires that a reactive/equivocal HCV antibody result be sent out for confirmation. HCV Quant by PCR testing. Performed By: #### L 3890.6300, L509.8000, BTS, L509.4005, L3890.6005, L3890.6100, L100.0100 #### [facility] [address] [place], [address] L509.8000on 03-21-2024 Syphilis Abs Non-Reactive Normal [facility] Comment on above: Order Comment: Reaso n for Exam: Performed By: #### L 3890.6300, L509.8000, BTS, L509.4005, L3890.6005, L3890.6100, L100.0100 #### [facility] [address] [place], [place], [id number] Track Grinder Operator Office Visit Reporton 03-21-2024 Track Grinder Operator Office Visit Report [facility] [address], [address] [place] [address] OFFICE VISIT Date of Service: 03/21/24 MR#: [id number] Acct: [id number] Name: CECIL ROMANO Rep #: [id number] : 1995 Provider: DONNELL curran Age/Sex: 28/F Location: [facility] Status: Signed Intake Vital Signs 03/21/24 13:08 03/21/24 14:04 Height 5 ft 4 in Weight: 136 lb 6 oz BMI 23.3 BP 133/90 H 123/87 H Intake Visit Reasons: NEW OB Animator Required: No Is patient in pain?: No [...] spouse current occupational status: employed 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 Normal [facility] Rubella IgGon 03-21-2024 Rubella IgG Reactive Normal Nonreactive [facility] Comment on above: Order Comment: Reaso n for Exam: Result Comment: Anti body Results Interpretation of Immune Status Non Reactive Presumed Non-Immune Equivocal Equivocal Reactive Presumed Immune Performed By: #### L 3890.6300, L509.8000, BTS, L509.4005, L3890.6005, L3890.6100, L100.0100 #### [facility] [address] [place], [address] Type AND Screenon 03-21-2024 Ab SCREEN GEL Negative Normal [facility] Comment on above: Order Comment: PN Performed By: #### L 3890.6300, L509.8000, BTS, L509.4005, L3890.6005, L3890.6100, L100.0100 #### [facility] [place], [address] Vital Signs Date Time Vital Sign Value Performing Clinician Grace schuler 08-24-2024 04:13-0400 Diastolic blood pressure 59 mm[Hg] No Primary Care Physician [facility] 08-24-2024 04:13-0400 Heart rate 108 /min No Primary Care Physician [facility] 08-24-2024 04:13-0400 Systolic blood pressure 101 mm[Hg] No Primary Care Physician [facility] 08-24-2024 04:12-0400 Body temperature 98.6 [degF] No Primary Care Physician [facility] 08-24-2024 04:12-0400 Respiratory rate 16 /min No Primary Care Physician [facility] 08-24-2024 04:10-0400 SaO2% (BldA) [Mass fraction] 96 % No Primary Care Physician [facility] 08-23-2024 22:36-0400 Body height 162.56 cm No Primary Care Physician [facility] 08-23-2024 22:36-0400 Body mass index (BMI) [Ratio] 26.3 kg/m2 No Primary Care Physician [facility] 08-23-2024 22:36-0400 Body weight 69.58 kg No Primary Care Physician [facility] Encounters Encounter Date Encounter Type Care Provider Facility Start: 08-23-2024 End: 08-24-2024 ambulatory No Primary Care Physician -[facility] Start: 08-23-2024 End: 08-24-2024 Patient encounter procedure Xochilt Rush CNM -[facility] Work Phone: Start: 05-06-2024 ambulatory DEFINED NOT Facility:[facility] Start: 03-21-2024 End: 03-21-2024 ambulatory Xochilt Rush Facility:[facility] Start: 03-21-2024 End: 03-21-2024 ambulatory [facility] [place]:[facility] Procedures Date Procedure Procedure Detail Performing Clinician Start: 08-24-2024 Complete ultrasound of kidneys and bladder No Primary Care Physician Start: 08-23-2024 Urnls dip stick/tabl et reagent auto microscopy No Primary Care Physician Plan of Treatment Date Care Activity Detail Author Start: 08-24-2024 Patient discharge [facility] Start: 08-23-2024 Nonstress test [facility] Start: 08-23-2024 Obstetric monitoring [facility] Start: 08-23-2024 Vital signs measurements [facility] Start: 08-23-2024 [facility] Patient Education Kick Counts ED False Labor OB Triage: Return to Hospital or Notify Physician if you Experience: [facility] Work Phone: Payers Date Payer Category Payer Self-pay 2024 Unknown [id number] Unknown [id number] Unknown [id number] Unknown [id number] Social History Date Type Detail Facility Start: 03-07-2024 Tobacco smoking stat us MNIS Never smoked tobacco (finding) [facility] Start: 1995 Sex Assigned At Female [facility] Radiology Diagnostic study note 08-24-2024 Note Date & Type Note Facility 08-24-2024 Radiology Diagnostic study note [facility] Imaging Services [address] [place] [address] Kidney and Bladder MR#: [id number] Acct: [id number] Name: CECIL ROMANO Rep #: [id number] : 1995 F 28 From: Leland Iraheta MD PCP: Care Physician,No Primary Status: REG CLI Study:Kidney and Bladder Date of Exam: 0 08/24/24 Exam# [id number] Ordering Dr: Xochilt Rush CNM PROCEDURE: KIDNEY AND BLADDER 08/23/2024 REASON FOR EXAM: R/O KIDNEY STONE TECHNIQUE: KIDNEY AND BLADDER COMPARISON: None. FINDINGS: Right kidney measures 20.0 cm. Left kidney measures 12.3 cm. Moderate right mild left hydroureteronephrosis. The urinary bladder is unremarkable. US/Kidney and Bladder IMPRESSION: Bilateral hydronephrosis. Reading Location: [id number] CC: DONNELL Rush; No Primary Care Physician ~ Agency Appointments Supervisor: Signed [facility] Evaluation note Note Date & Type Note Facility Evaluation note No assessment information availa ble [facility] Work Phone: Reason for referral (narrative) Note Date & Type Note Facility Reason for referral (narrative) No reason for referral information available [facility] Work Phone: Summary Purpose Family History Relationship Condition Age at Onset Recorded Date/T anshu mother Hypertension Unknown Advance Directives No Advanced Directives Records Found Chief Complaint and Reason for Visit Chief Complaint Admit Date RULE OUT LABOR August 23, 2024 10:0 5pm Additional Source Comments INFORMATION SOURCE (unrecogn ized section and content) DATE CREATED AUTHOR 05/04/2024 [facility] Care Teams (unrecognized sec tion and content) [...] BE BASED ON THE PRIMARY CLINICAL RECORDS. [facility]. provides no warranty or guarantee of the accuracy or completeness of information in this document.
[2024-08-25] MEDS: Piperacil/Tazobactam 3.375 GM in 0.9% Normal Saline (50mL MB+) 50 ML IV (06:21)
[2024-08-25] MEDS: Norepinephrine 8 MG in 0.9% Normal Saline (250mL Bag) 242 ML 9.4 MG CONT INF (07:39)
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
--- NOTE | 2024-08-25 08:31 | CON.PCM.CC_ITS ---
Assessment & Plan Assessment/Plan (1) Sepsis: (2) Pyelonephritis affecting : PLAN: Plan RECOMMENDATIONS: 1. Continue empiric antimicrobials, pending infectious workup. 2. Levophed to maintain a mean arterial pressure at or above 65 mmHg. 3. SCDs for DVT prophylaxis. 4. Encourage incentive spirometer use while in bed. IMPRESSIONS: 1. Suspected gram-negative septic shock The patient presented to the hospital with symptoms concerning for underlying urinary tract source of infection with radiographic evidence of bilateral hydronephrosis. The patient did develop fluid refractory hypotension, which has required the initiation of vasopressor support to maintain hemodynamic stability. The patient will be continued on broad-spectrum antimicrobials, pending culture workup. In addition, Levophed will be continued to maintain mean arterial pressure at or above 65 mmHg. 2. 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 3. Relative anemia and thrombocytopenia Likely related to current status and sepsis. Continue supportive measures as noted above. No indication for transfusion of blood products at the present time. TIME: 34 minutes of critical care time, independent of procedures, was spent addressing the patient's septic shock, review of all data and collaboration with the care team. HPI Consult Data Date of Consult: 08/25/24 HPI Narrative Reason for Consultation: Septic shock HPI Narrative: The patient is a 28-year-old female, with a history as outlined below, who presented to the hospital on August 24 with complaints of flank pain, fevers and chills. The patient is currently 32 weeks with her first child. She has been followed on an outpatient basis by a java software with regard to her care. On presentation, the patient was initially noted to be febrile and hypotensive. Laboratory evaluation was notable for a white blood cell count of 26,000 with a hemoglobin of 11.4 g/dL. Platelet count was within normal limits. Coagulation profile was unremarkable. Chemistry profile revealed a creatinine of 1.02 with a lactate of 2.1. Total bilirubin was normal. Lipase was within normal limits. Urine analysis was positive for leukocyte esterase and negative for nitrites. Renal ultrasound demonstrated bilateral hydronephrosis. Given concerns for underlying urinary tract source of infection, the patient received IV fluids and was placed on antimicrobials. Ultimately, over the course of her hospitalization, the patient developed fluid refractory hypotension, which required the initiation of low-dose vasopressor support, for which the patient was transferred to the medical intensive care unit. At the present time, the patient denies any pain related complaints. She is resting comfortably in bed on low-dose Levophed at 5 mcg/min. White blood cell count has improved to 21,000. Hemoglobin has dropped to 9.4 g/dL, admits to volume expansion. Platelet count has decreased to 112,000. Lactic acidemia has resolved. Creatinine is within normal limits. 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 current occupational exposures/hazards: No pets and animals: Yes (Outside-2 cats) pets and animals: cat(s) history of recent travel: No sexually active: Yes Smoking Status: Never smoker alcohol intake: current alcohol intake frequency: holidays/special occasions only details: not while substance use type: does not use well-balanced diet: daily or most days caffeine: Yes Type: coffee Number of servings: 1 eating out: rarely or never during the past year weight has: decreased > 10 lbs what type of physical activity do you participate in: walking and other details: body weight exercises frequency: daily duration: 15-30 minutes/day joanne/hoahaoism: Yazidi seatbelt use: sometimes do you feel safe at home: Yes 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 10 systems were reviewed with pertinent positives as noted in the HPI above. Physical Exam Const alert, oriented x3 and no apparent distress General Appearance: cooperative and ill appearing HEENT normocephalic and head/scalp atraumatic Eyes PERRL, EOMs intact bilaterally and conjunctivae normal Neck supple General: trachea midline Chest inspection of chest normal Resp no use of accessory muscles Effort and Inspection: able to speak in complete sentences and tachypneic Auscultation: diminished lung sounds Cardio S1 normal heart sound and S2 normal heart sound Rate: tachycardic GI soft to palpation and non-tender Extremity no clubbing, cyanosis or edema Skin no rashes or lesions noted Neuro CN's II-XII intact bilaterally and no focal motor deficits Psych cooperative and affect normal Lab / Micro Data 08/25/24 01:25 08/25/24 01:25 Labs: Laboratory Results - last 24 hr 08/24/24 14:45: WBC 26.6 H, RBC 3.90 L, Hgb 11.4 L, Hct 32.9 L, MCV 84.4, MCH 29.2, MCHC 34.7, RDW Std Deviation 36.7, RDW Coeff of Joe 12.1, Plt Count 150, MPV 9.7, Immature Gran % (Auto) 1.000 H, Neut % (Auto) 92.7 H, Lymph % (Auto) 1.6 L, Elliott % (Auto) 4.5, Eos % (Auto) 0.0, Baso % (Auto) 0.2, Absolute Neuts (auto) 24.6 H, Absolute Lymphs (auto) 0.42 L, Nucleated RBC % 0, Differential Comment SCANNED, Platelet Estimate ADEQUATE, Sodium 135, Potassium 3.6, Chloride 102, Carbon Dioxide 20.0 L, Anion Gap 12, BUN 8, Creatinine 1.02, Estim Creat Clear Calc 77.42, Est GFR (MDRD) Non-Af 76, BUN/Creatinine Ratio 8.1 L, Glucose 114 H, Calcium 8.9, Total Bilirubin 0.71, AST 22, ALT 15, Alkaline Phosphatase 220 H, Total Protein 6.4, Albumin 3.4 L, Globulin 3.0, Albumin/Globulin Ratio 1.1, Lipase 17 08/24/24 18:11: PT 14.7, INR 1.1, APTT 28.7, Sodium 134, Potassium 3.2 L, Chloride 100, Carbon Dioxide 20.8 L, Anion Gap 13, BUN 8, Creatinine 1.07, Estim Creat Clear Calc 73.80, Est GFR (MDRD) Non-Af 72, BUN/Creatinine Ratio 7.9 L, G lucose 117 H, Lactic Acid 2.1 H*, Calcium 8.9, Phosphorus 2.4 L, Magnesium 1.5, Blood Type A POSITIVE, Antibody Screen NEGATIVE 08/24/24 22:10: Lactic Acid 2.4 H* 08/25/24 01:25: WBC 20.8 H, RBC 3.28 L, Hgb 9.4 L, Hct 28.2 L, MCV 86.0, MCH 28.7, MCHC 33.3, RDW Std Deviation 37.9, RDW Coeff of Joe 12.1, Plt Count 112 L, MPV 9.7, Immature Gran % (Auto) 2.900 H, Neut % (Auto) 89.7 H, Lymph % (Auto) 2.3 L, [place] % (Auto) 4.8, Eos % (Auto) 0.0, Baso % (Auto) 0.3, Absolute Neuts (auto) 18.7 H, Absolute Lymphs (auto) 0.48 L, Nucleated RBC % 0, Differential Comment SCANNED, Sodium 136, Potassium 3.3, Chloride 105, Carbon Dioxide 18.2 L, Anion Gap 13, BUN 8, Creatinine 1.02, Estim Creat Clear Calc 79.42, Est GFR (MDRD) Non-Af 76, BUN/Creatinine Ratio 8.0 L, Glucose 88, Lactic Acid 1.5, Calcium 8.2 Imaging Radiology Impression Chest X-Ray 08/24/24 21:30 IMPRESSION: No acute findings Reading Location: [place] [address] Obstetrics Ultrasound 08/25/24 06:00 IMPRESSION: cardiac activity at 140 beats per minute. Normal amniotic fluid. Reading Location: [id number] Charges/Coding Procedures Hospitalists Procedures: 02990 Critical Care 1st Hr
[2024-08-25] MEDS: Na Biphos/Potassium Phosphate PACKET 1 PACKET PO (08:34)
--- NOTE | 2024-08-25 10:54 | CT_ITS ---
PROCEDURE: CT CHEST, ABD, PEL W/CONTRAST 08/25/2024 REASON FOR EXAM: SEPTIC SHOCK, HYPOXEMIA TECHNIQUE: Chest, abdomen and pelvis CT with intravenous contrast. Coronal and Sagittal reconstruction series were provided. One or more dose reduction techniques were used (e.g., Automated exposure control, adjustment of the mA and/or kV according to patient size, use of iterative reconstruction technique. PATIENT PREPARATION: Per protocol ORAL CONTRAST TYPE: None. CONTRAST: Isovue-300 VOLUME: 100mL RADIATION DOSE SUMMARY: CTDlvol: 11.6 mGy DLP: 1080.28 mGycm COMPARISON: None FINDINGS: CT CHEST: Hardware: EKG electrodes. Lymph nodes: None Heart and Vasculature: Unremarkable Lungs and Airways: Minimal bilateral pleural effusions right slightly greater than right with bibasilar dependent atelectasis. Minimal increased markings in the posterior aspect of the lingula segment of the left upper lobe suggestive of atelectasis. Pleura: Minimal bilateral pleural effusions. Bones: Unremarkable CT ABDOMEN/PELVIS: Liver: Mild hepatomegaly. Gallbladder: Gallbladder is distended. This is most likely secondary to the fasting condition. Spleen: Borderline splenomegaly. Pancreas: Normal size without evidence of mass surrounding inflammation or ductal dilation. Adrenals: Unremarkable Kidneys: The right kidney is engorged. There is evidence of [id number] right hydronephrosis and right hydroureter down to a 3 mm calculus at the right ureterovesical junction. Heterogeneous enhancement of the renal parenchyma suggestive of multifocal lobar nephronia. Bladder: Unremarkable Reproductive Organs: The patient is . The fetus is seen. Bowel: Unremarkable Appendix: The appendix is not visualized Lymph nodes: Unremarkable. Vasculature: The abdominal aorta and IVC are normal. Peritoneum / Retroperitoneum: Small amount of free fluid in the pelvis. Bones: Unremarkable CT/CT Chest, Abd, Pel w/Contrast IMPRESSION: Enlarged and engorgement of the right kidney with the heterogeneous enhancement of the renal parenchyma suggestive of multi lobar nephronia. Right hydronephrosis and right hydroureter due to a 3 mm calculus at the right ureterovesical junction. Free fluid in the pelvis. Mild hepatomegaly and borderline splenomegaly. Reading Location: [place] [address]
--- NOTE | 2024-08-25 11:59 | EX.PCM.CON.S ---
Assessment & Plan Assessment/Plan (1) Abnormal CT of the abdomen: (2) Nephrolithiasis: (3) Sepsis: (4) Pyelonephritis affecting : PLAN: Plan Read of CAT scan does show hydronephrosis of the right kidney due to kidney stone. Cecum appears to be folded up in the epigastrium which patient denies any pain in that area?unable to discretely identify the appendix. OB did talk with MFM at [place] and they agreed on transfer as we do not have urology on-call currently. Jody Zuniga M.D. Pager: [phone] [facility] [address] [place] [address], Outpatient [place], [address] [place] [address] Office: [phone] HPI Consult Data Date of Consult: 08/25/24 HPI Narrative Reason for Consultation: Abnormal CT scan questionable appendicitis due to free fluid HPI Narrative: CECIL ROMANO, is a 28 F who presents initially with right flank pain and who is 32 weeks . Patient was transferred to the ICU overnight due to urosepsis?currently on Zosyn IV. Patient white blood count of 26 and currently on Levophed 3 mcg and just turned down to 2. Patient has no abdominal pain just right flank pain. Patient CT abdomen pelvis showed hydronephrosis on the right and hydroureter with kidney stone on my read at the bladder. The cecum appears to be folded back to the epigastric/mid abdomen appendix not able to be obviously visualized. There is some free fluid in the pelvis. 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 current occupational exposures/hazards: No pets and animals: Yes (Outside-2 cats) pets and animals: cat(s) history of recent travel: No sexually active: Yes Smoking Status: Never smoker alcohol intake: current alcohol intake frequency: holidays/special occasions only details: not while substance use type: does not use well-balanced diet: daily or most days caffeine: Yes Type: coffee Number of servings: 1 eating out: rarely or never during the past year weight has: decreased > 10 lbs what type of physical activity do you participate in: walking and other details: body weight exercises frequency: daily duration: 15-30 minutes/day joanne/taoism: Judaism seatbelt use: sometimes do you feel safe at home: Yes 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 Constitutional Constitutional: Reports fever(s) Eyes Eyes: Denies blurry vision ENT HEENT: Denies dysphagia Cardiovascular Cardiovascular: Denies chest pain Respiratory/Chest Respiratory/Chest: Denies cough Gastrointestinal Gastrointestinal: Reports abdominal pain Genitourinary Genitourinary: Reports dysuria Musculoskeletal Musculoskeletal: Reports back pain Integumentary Integumentary: Denies jaundice Neurologic Neurologic: Denies focal weakness Hematologic/Lymphatic Hematologic/Lymphatic: Denies easy bleeding Physical Exam Const alert General Appearance: ill appearing HEENT normocephalic Cardio Rate: tachycardic GI GI Narrative: Abdomen consistent with 32-week , nontender except for right flank Lab / Micro Data 08/25/24 01:25 08/25/24 01:25 Labs: Laboratory Results - last 24 hr 08/24/24 14:45: WBC 26.6 H, RBC 3.90 L, Hgb 11.4 L, Hct 32.9 L, MCV 84.4, MCH 29.2, MCHC 34.7, RDW Std Deviation 36.7, RDW Coeff of Joe 12.1, Plt Count 150, MPV 9.7, Immature Gran % (Auto) 1.000 H, Neut % (Auto) 92.7 H, Lymph % (Auto) 1.6 L, White % (Auto) 4.5, Eos % (Auto) 0.0, Baso % (Auto) 0.2, Absolute Neuts (auto) 24.6 H, Absolute Lymphs (auto) 0.42 L, Nucleated RBC % 0, Differential Comment SCANNED, Platelet Estimate ADEQUATE, Sodium 135, Potassium 3.6, Chloride 102, Carbon Dioxide 20.0 L, Anion Gap 12, BUN 8, Creatinine 1.02, Estim Creat Clear Calc 77.42, Est GFR (MDRD) Non-Af 76, BUN/Creatinine Ratio 8.1 L, Glucose 114 H, Calcium 8.9, Total Bilirubin 0.71, AST 22, ALT 15, Alkaline Phosphatase 220 H, Total Protein 6.4, Albumin 3.4 L, Globulin 3.0, Albumin/Globulin Ratio 1.1, Lipase 17 08/24/24 18:11: PT 14.7, INR 1.1, APTT 28.7, Sodium 134, Potassium 3.2 L, Chloride 100, Carbon Dioxide 20.8 L, Anion Gap 13, BUN 8, Creatinine 1.07, Estim Creat Clear Calc 73.80, Est GFR (MDRD) Non-Af 72, BUN/Creatinine Ratio 7.9 L, Glucose 117 H, Lactic Acid 2.1 H*, Calcium 8.9, Phosphorus 2.4 L, Magnesium 1.5, Blood Type A POSITIVE, Antibody Screen NEGATIVE 08/24/24 22:10: Lactic Acid 2.4 H* 08/25/24 01:25: WBC 20.8 H, RBC 3.28 L, Hgb 9.4 L, Hct 28.2 L, MCV 86.0, MCH 28.7, MCHC 33.3, RDW Std Deviation 37.9, RDW Coeff of Joe 12.1, Plt Count 112 L, MPV 9.7, Immature Gran % (Auto) 2.900 H, Neut % (Auto) 89.7 H, Lymph % (Auto) 2.3 L, White % (Auto) 4.8, Eos % (Auto) 0.0, Baso % (Auto) 0.3, Absolute Neuts (auto) 18.7 H, Absolute Lymphs (auto) 0.48 L, Nucleated RBC % 0, Differential Comment SCANNED, Sodium 136, Potassium 3.3, Chloride 105, Carbon Dioxide 18.2 L, Anion Gap 13, BUN 8, Creatinine 1.02, Estim Creat Clear Calc 79.42, Est GFR (MDRD) Non-Af 76, BUN/Creatinine Ratio 8.0 L, Glucose 88, Lactic Acid 1.5, Calcium 8.2 08/25/24 10:43: POC Glucose 87 Imaging Radiology Impression Chest X-Ray 08/24/24 21:30 IMPRESSION: No acute findings Reading Location: [place] [address] Obstetrics Ultrasound 08/25/24 06:00 IMPRESSION: cardiac activity at 140 beats per minute. Normal amniotic fluid. Reading Location: [place] [address]
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
--- NOTE | 2024-08-25 12:35 | CASEMGMT ---
Tertiary Insurance review for hospitals In-network with [facility] insurance if transfer is recommended is as follows: [facility], [facility]. Ariella Hernandez, Discharge Planning Asst.
--- NOTE | 2024-08-25 13:06 | PCM.DC.BLA ---
Discharge Summary Date of Admission: 08/24/24 Date of Discharge: 08/25/24 Summary: Patient is a 28-year-old at 32 weeks 5 days presented Sunday afternoon with right flank pain and fever she had been seen in triage 24 hours earlier with right flank pain and hematuria no fever, suspected kidney stone but none was seen on renal ultrasound. Upon admission diagnosis of pyelonephritis was made, patient had a white blood cell count of 26,000 and initial temperature under 100 degrees and was initially given ceftriaxone however after 4 hours she became hypotensive and spiked a temperature up to 102.6 therefore she was switched to Zosyn. Sepsis protocol was begun, blood cultures drawn, and she was given a total of 2500 cc including her initial fluid resuscitation upon admission, hospitalist consulted for comanagement, hypotension improved. Several hours later hypotension returned and the decision was made to transfer her to the ICU. In the morning of 08/25 at 7 AM her MAP was under 65 and she required Levophed to maintain blood pressure. Senior Electronics Engineer was consulted. At 11 AM she developed a tachypneic and tachycardic episode into the 140s therefore a CT of the chest abdomen pelvis was performed and free fluid in the cul-de-sac was seen in addition to a right stone lodged in the ureter with a hydroureter above. General surgery consulted. Further discussion with LIZZIE. General surgery did not feel that this was appendicitis and both general surgery and the manager analysis recommended transport prior to any exploratory surgery due to the lack of urology coverage. Patient had decreasing levophed needs, now down to 1 unit to maintain appropriate MAP. lactic acid 1.4 and WBC 20 now. status reassuring overall, now cat I 150 moderae variability reactive no regular ctx. ICU to ICU transport arranged Meaningful Use Info Meaningful Use Meaningful Use Diagnoses (Choose all that apply): None applicable Ischemic Stroke Statin Dosing Therapy Reference: STATIN DOSE THERAPY REFERENCE: * Patients > 75 years receive moderate or high dose statin therapy. * Patients 75 years or YOUNGER should receive HIGH intensity statin dose unless contraindicated. You will be required to document reason for non-treatment if statin daily dose does not meet guidelines. HIGH DOSE STATIN THERAPY DAILY Atorvastatin > than or = to 40 mg Rosuvastatin > than or = to 20 mg Amlodipine + Atorvastatin > than or = to 2.5/40 mg Ezetimibe + Simvastatin 10/80 mg Simvastatin 80mg Discharge Plan Admission Admit Date/Time: 08/25/24 00:59 Attending Provider: Xochilt Rush Primary Care Provider: Care Physician,No Primary Consulting Providers: Kevin Pruitt; Reagan Eid; Prosper Sanchez; Anders Salazar; Michael Fonseca; Mars Sibley; Eldon Johnson; Jeremías Banuelos; Jeff Perry; Carleen Robles; Denver Morales; David Olivo; Toi Polladr; Jazmyne Zuniga; Gera Chau; Jeanette Houston; Remigio Thurston; Flo Thomas; Erick Roman; Isaias Lakhani; Yanick Lincoln; Rony Rene; Uche Parikh; Ryder Arizmendi; Desean Moreland Discharge Orders/Prescriptions Prescriptions: No Action PNV-DHA 27 mg iron-1 mg -300 mg capsule 1 cap PO DAILY vitamin B complex Capsule 1 cap PO QDAY Referrals / Follow Up: Care Physician,No Primary [Primary Care Provider] -
== END 2024-08-25 14:08 | disposition short-term general hospital (02) | DRG 831 ==
LOC: ICU 06:09 → WPOUT 06:13 → ICU 06:13
PROVIDERS: Obstetrics & Gynecology; Admitting Provider Hospitalist; Visit Provider Registered Nurse
DX: O98.813 Other maternal infectious and parasitic diseases complicating pregnancy, third trimester (principal); A41.51 Sepsis due to Escherichia coli [E. coli]; R65.21 Severe sepsis with septic shock; N13.6 Pyonephrosis; O23.03 Infections of kidney in pregnancy, third trimester; N10 Acute pyelonephritis; E87.6 Hypokalemia; O99.283 Endocrine, nutritional and metabolic diseases complicating pregnancy, third trimester; O99.893 Other specified diseases and conditions complicating puerperium; Z3A.32 32 weeks gestation of pregnancy
CPT/HCPCS: 36415; 71045; 71260; 74177; 76815; 80048; 80053; 82962; 83605; 83690; 83735; 84100; 85025; 85610; 85730; 86850; 86900; 86901; 87040; 87077; 87086; 87088; 87186; 94668; 94762; Q9967; A4216; J2405

== ENCOUNTER 2024-09-01 14:55 | Outpatient (RCR) | payer OTHER, SELFPAY ==
[2024-09-01 15:19] LABS: Hematocrit 33.8 % (37-47); Hemoglobin 11.4 g/dL (12.0-15.0); Immature Granulocytes Count 0.290 X10^3/uL (0.0-0.0); Mean Corp Hgb Conc 33.7 g/dL (32-36); Mean Corpuscular Volume 85.4 fL (81-99); Mean Platelet Vol. 9.9 fl (6.2-12.0); NRBC Flagged by Analyzer 0 % (0-5); Platelet Count 186 K/mm3 (150-450); RBC Distribution Width CV 12.7 % (11.6-14.6); RBC Distribution Width SD 38.2 fl (35.1-43.9); Red Blood Count 3.96 M/mm3 (4.2-5.4); White Blood Count 12.0 K/mm3 (4.4-11.0)
[2024-09-01 16:28] LABS: AST(SGOT) 45 U/L (<=31); Alanine Aminotransfer ALT/SGPT 93 U/L (<=34); Albumin, Serum 3.3 g/dL (3.5-5.0); Alkaline Phosphatase 146 U/L (35-104); Anion Gap 12 (5-15); BUN 7 mg/dL (4-19); BUN/Creat Ratio 13.0 RATIO (10-20); Calcium,Total 9.8 mg/dL (7.6-11.0); Carbon Dioxide 24.6 mmol/L (21.0-32.0); Chloride 99 mmol/L (98-108); Globulin 3.2 g/dL (2.2-4.2); Glucose 92 mg/dL (70-99); Potassium 4.1 mmol/L (3.3-5.1)
[2024-09-02 17:08] LABS: Hematocrit 34.8 % (37-47); Hemoglobin 11.4 g/dL (12.0-15.0); Immature Granulocytes Count 0.230 X10^3/uL (0.0-0.0); Mean Corp Hgb Conc 32.8 g/dL (32-36); Mean Corpuscular Volume 87.2 fL (81-99); Mean Platelet Vol. 9.5 fl (6.2-12.0); NRBC Flagged by Analyzer 0 % (0-5); Platelet Count 253 K/mm3 (150-450); RBC Distribution Width CV 13.0 % (11.6-14.6); RBC Distribution Width SD 40.4 fl (35.1-43.9); Red Blood Count 3.99 M/mm3 (4.2-5.4); White Blood Count 13.2 K/mm3 (4.4-11.0)
[2024-09-02 17:31] LABS: AST(SGOT) 27 U/L (<=31); Alanine Aminotransfer ALT/SGPT 76 U/L (<=34); Albumin, Serum 3.3 g/dL (3.5-5.0); Alkaline Phosphatase 147 U/L (35-104); Anion Gap 11 (5-15); BUN 8 mg/dL (4-19); BUN/Creat Ratio 12.7 RATIO (10-20); Calcium,Total 9.8 mg/dL (7.6-11.0); Carbon Dioxide 24.5 mmol/L (21.0-32.0); Chloride 100 mmol/L (98-108); Globulin 3.6 g/dL (2.2-4.2); Glucose 80 mg/dL (70-99); Potassium 4.5 mmol/L (3.3-5.1)
== END 2024-09-11 23:59 ==
LOC: BWCLAB 14:55
PROVIDERS: Referring Provider Obstetrics & Gynecology; Visit Provider Obstetrics & Gynecology
DX: O23.00 Infections of kidney in pregnancy, unspecified trimester (principal); N20.0 Calculus of kidney
CPT/HCPCS: 36415; 80053; 85025

== ENCOUNTER → 2024-09-02 | Outpatient (CLI) | payer OTHER, SELFPAY ==
--- NOTE | 2024-09-02 13:49 | US_ITS ---
PROCEDURE: OB BIOPHYSICAL PROF W/O NST 09/02/2024 REASON FOR EXAM: WELL BEING TECHNIQUE: OB BIOPHYSICAL PROF W/O NST COMPARISON: None FINDINGS Intrauterine with cephalic position. heart rate of 144 beats per minute. Amniotic fluid is within normal limits. Largest fluid pocket measures 3.6 cm with RM of 11.8. Placenta is in fundal position. Biophysical profile demonstrates 8/8 with assessment of breathing movements, body movements, tone, and amniotic fluid volume. Sonographic age of 33 weeks and 6 days with estimated delivery date of 10/15/2024. US/OB Biophysical Prof W/O NST IMPRESSION: Biophysical profile of 8/8 with amniotic fluid within normal limits. No acute sonographic abnormalities. Reading Location: [id number]
== END | disposition home or self-care (01) ==
LOC: US 13:48
PROVIDERS: Referring Provider Obstetrics & Gynecology; Visit Provider Obstetrics & Gynecology
DX: O98.813 Other maternal infectious and parasitic diseases complicating pregnancy, third trimester (principal); A41.9 Sepsis, unspecified organism; O99.891 Other specified diseases and conditions complicating pregnancy; N20.0 Calculus of kidney; Z3A.33 33 weeks gestation of pregnancy
CPT/HCPCS: 76819

== ENCOUNTER → 2024-09-10 | Outpatient (CLI) | payer OTHER, SELFPAY | END | disposition home or self-care (01) | LOC: LABSPEC 14:56 | PROVIDERS: Visit Provider Obstetrics & Gynecology | DX: Z34.00 Encounter for supervision of normal first pregnancy, unspecified trimester (principal) | CPT/HCPCS: 87491; 87591 ==

== ENCOUNTER → 2024-09-17 | Outpatient (CLI) | payer OTHER, SELFPAY ==
[2024-09-17 16:39] LABS: Hematocrit 34.4 % (37-47); Hemoglobin 11.0 g/dL (12.0-15.0); Immature Granulocytes Count 0.070 X10^3/uL (0.0-0.0); Mean Corp Hgb Conc 32.0 g/dL (32-36); Mean Corpuscular Volume 86.9 fL (81-99); Mean Platelet Vol. 9.9 fl (6.2-12.0); NRBC Flagged by Analyzer 0 % (0-5); Platelet Count 213 K/mm3 (150-450); RBC Distribution Width CV 12.5 % (11.6-14.6); RBC Distribution Width SD 39.6 fl (35.1-43.9); Red Blood Count 3.96 M/mm3 (4.2-5.4); White Blood Count 12.5 K/mm3 (4.4-11.0)
[2024-09-17 17:44] LABS: Glucose Challenge Gest 1H 50g 121 mg/dL (70-140); HIV Nonreactive (Nonreactive); Syphilis Antibodies Nonreactive (Nonreactive)
[2024-09-17 18:11] LABS: AST(SGOT) 19 U/L (<=31); Alanine Aminotransfer ALT/SGPT 19 U/L (<=34); Albumin, Serum 3.7 g/dL (3.5-5.0); Alkaline Phosphatase 146 U/L (35-104); Anion Gap 13 (5-15); BUN 10 mg/dL (4-19); BUN/Creat Ratio 15.6 RATIO (10-20); Calcium,Total 9.5 mg/dL (7.6-11.0); Carbon Dioxide 21.3 mmol/L (21.0-32.0); Chloride 101 mmol/L (98-108); Globulin 3.3 g/dL (2.2-4.2); Glucose 121 mg/dL (70-99); Potassium 3.7 mmol/L (3.3-5.1)
[2024-09-17 18:20] LABS: Creatinine, Urine (random) 96.50 mg/dL (28.00-217.00); Protein, Urine (Random) 63.9 mg/dL (0.0-12.0); Protein:Creat Ratio 662 mg/g CRE (0-200)
== END | disposition home or self-care (01) ==
PROVIDERS: Advanced Practice Midwife; Obstetrics & Gynecology; Referring Provider Obstetrics & Gynecology; Visit Provider Obstetrics & Gynecology
DX: O12.10 Gestational proteinuria, unspecified trimester (principal); O99.119 Other diseases of the blood and blood-forming organs and certain disorders involving the immune mechanism complicating pregnancy, unspecified trimester; D69.6 Thrombocytopenia, unspecified; Z3A.00 Weeks of gestation of pregnancy not specified; Z13.1 Encounter for screening for diabetes mellitus
CPT/HCPCS: 36415; 80053; 82570; 82950; 84156; 85025; 86703; 86780; 87081; 87086

== ENCOUNTER → 2024-09-19 | Outpatient (CLI) | payer OTHER, SELFPAY ==
--- NOTE | 2024-09-19 16:30 | US_ITS ---
PROCEDURE: OB LIMITED WITH BIOMETRICS 09/19/2024 REASON FOR EXAM: UTERINE SIZE DATE DISCREPANCY TECHNIQUE: OB LIMITED WITH BIOMETRICS COMPARISON: None FINDINGS LMP: January 08, 2025. Number: 1 Position: Vertex Placental Position: Fundal and not low-lying. Placental Abnormalities: No evidence of previa. DIMENSIONS: Biparietal Diameter: 8.9 cm: 36 weeks and 0 days: 54 percentile./ Head Circumference: 31.8 cm: 35 weeks and 6 days: 13 percentile/ Abdominal Circumference: 32.4 cm: 36 weeks and 2 days: 62nd percentile/ Femur Length: 6.4 cm: 33 weeks and 2 days: 1.3 percentile./ ESTIMATED WEIGHT: 2709 g plus/-406 g ESTIMATED WEIGHT PERCENTILE (24+ weeks): 33 ESTIMATED GESTATIONAL AGE: Baseline: 36 weeks and 2 days By ultrasound: 35 weeks and 2 days ESTIMATED DATE OF DELIVERY: Baseline: October 15, 2024 By Ultrasound: October 22, 2024 BIOPHYSICAL ASSESSMENT: Amniotic Fluid Volume: 2.8 cm Amniotic Fluid Index: 8 (8-24 cm normal range) Cardiac Motion: 132 beats per minute (average) Trunk and Limb Motion: Present. MATERNAL ANATOMY: Adnexa: Neither maternal ovary is successfully identified. US/OB Limited With Biometrics IMPRESSION: Single live intrauterine gestation with a mean gestational age of 35 weeks and 2 days. Reading Location: [place] [id number]
== END | disposition home or self-care (01) ==
PROVIDERS: Referring Provider Advanced Practice Midwife; Visit Provider Advanced Practice Midwife
DX: O26.843 Uterine size-date discrepancy, third trimester (principal); Z3A.35 35 weeks gestation of pregnancy
CPT/HCPCS: 76816

== ENCOUNTER → 2024-09-26 | Outpatient (CLI) | payer OTHER, SELFPAY ==
--- NOTE | 2024-09-26 15:11 | US_ITS ---
PROCEDURE: OB LIMITED (NO BIOMETRICS) 09/26/2024 REASON FOR EXAM: RM TECHNIQUE: OB LIMITED (NO BIOMETRICS) COMPARISON: Prior study dated August 25, 2024. FINDINGS Number: 1 Position: Vertex Placental Position: Anterior and fundal in position. Placental Abnormalities: No evidence of previa. ESTIMATED GESTATIONAL AGE: Baseline: 37 weeks and 2 days ESTIMATED DATE OF DELIVERY: Baseline: October 15, 2024. BIOPHYSICAL ASSESSMENT: Amniotic Fluid Index: 9.62 cm (8-24 cm normal range) Cardiac Motion: 133 beats per minute (average) Trunk and Limb Motion: Present. US/OB Limited (No Biometrics) IMPRESSION: Normal amniotic fluid. Reading Location: [facility]
== END | disposition home or self-care (01) ==
LOC: US 15:09
PROVIDERS: Referring Provider Advanced Practice Midwife; Visit Provider Advanced Practice Midwife
DX: O26.843 Uterine size-date discrepancy, third trimester (principal); Z3A.37 37 weeks gestation of pregnancy
CPT/HCPCS: 76815

== ENCOUNTER → 2024-10-02 | Outpatient (CLI) | payer OTHER, SELFPAY ==
--- NOTE | 2024-10-02 15:09 | US_ITS ---
PROCEDURE: OB LIMITED (NO BIOMETRICS) 10/02/2024 REASON FOR EXAM: RM TECHNIQUE: OB LIMITED (NO BIOMETRICS) COMPARISON: September 29, 2024. FINDINGS Number: 1 Position: Vertex Placental Position: Fundal Placental Abnormalities: No evidence of previa. Amniotic fluid: 3.4 cm. Amniotic fluid index: 6.4 cm ESTIMATED WEIGHT: ESTIMATED WEIGHT PERCENTILE (24+ weeks): ESTIMATED GESTATIONAL AGE: Baseline: 38 weeks and 1 day ESTIMATED DATE OF DELIVERY: Baseline: October 15, 2024 US/OB Limited (No Biometrics) IMPRESSION: Maximum amniotic fluid pocket measures 3.4 cm. Amniotic fluid index: 6.4 cm. Reading Location: [id number]
== END | disposition home or self-care (01) ==
LOC: US 15:08
PROVIDERS: Referring Provider Advanced Practice Midwife; Visit Provider Advanced Practice Midwife
DX: O26.849 Uterine size-date discrepancy, unspecified trimester (principal); Z3A.00 Weeks of gestation of pregnancy not specified
CPT/HCPCS: 76815

== ENCOUNTER 2024-10-08 19:22 | Inpatient (IN) | payer OTHER, SELFPAY ==
[2024-10-08 19:10] VITALS: BMI 26.8
[2024-10-08 19:20] VITALS: BP 122/78; PULSE 120; TEMP 36.7
[2024-10-08 20:22] LABS: Hematocrit 33.1 % (37-47); Hemoglobin 11.4 g/dL (12.0-15.0); Immature Granulocytes Count 0.080 X10^3/uL (0.0-0.0); Mean Corp Hgb Conc 34.4 g/dL (32-36); Mean Corpuscular Volume 81.3 fL (81-99); Mean Platelet Vol. 10.0 fl (6.2-12.0); NRBC Flagged by Analyzer 0 % (0-5); Platelet Count 241 K/mm3 (150-450); RBC Distribution Width CV 12.8 % (11.6-14.6); RBC Distribution Width SD 37.6 fl (35.1-43.9); Red Blood Count 4.07 M/mm3 (4.2-5.4); White Blood Count 14.3 K/mm3 (4.4-11.0)
[2024-10-08 20:37] LABS: Syphilis Antibodies Nonreactive (Nonreactive)
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
[2024-10-08 23:41] VITALS: BP 97/52; PULSE 74; RESP 16
[2024-10-08 23:42] VITALS: TEMP 36.6
[2024-10-09] VITALS (56 sets, daily range): BP systolic 66–124; BP diastolic 48–87; PULSE 57–127; RESP 15–18; TEMP 36.4–37.1; O2SAT 87–100
[2024-10-09] MEDS: 0.9% Normal Saline Single 100 ML IV.SOLN. INTRA-UTER (07:47)
--- NOTE | 2024-10-09 10:59 | PCM.PN.BLA ---
Progress Note Category 2 tracing gave amnioinfusion with good resolution making cervical change overall in good contraction pattern reassuring status now. Continue expectant management Pitocin per protocol.
[2024-10-09] MEDS: 0.9% Saline Lock 10 ML Syringe IV ×2 (17:09→20:22)
[2024-10-09] MEDS: Lactated Ringers 1,000 ML 999 ML IV (17:16)
[2024-10-09] MEDS: Lactated Ringers 1,000 ML 200 ML IV ×2 (18:17→23:20)
[2024-10-09] MEDS: fentaNYL-bupivacaine (epidural) 100 ML BAG EPIDURAL ×2 (18:18→22:30)
[2024-10-09] MEDS: Oxytocin 15 Units/NS 250ml 15 UNITS/250 ML IV.SOLN 2 UNITS IV (19:25)
[2024-10-09] MEDS: 0.9% Normal Saline 500 ML IV.SOLN. INTRA-UTER (21:19)
[2024-10-09] MEDS: LACTATED RINGERS 500 ML 999 ML IV (22:23)
[2024-10-10] VITALS (47 sets, daily range): BP systolic 77–184; BP diastolic 50–132; PULSE 69–130; RESP 16–18; TEMP 36.5–38; O2SAT 92–100
[2024-10-10] MEDS: LACTATED RINGERS 500 ML 999 ML IV (01:16)
[2024-10-10] MEDS: TRANEXAMIC ACID 1,000 MG in 0.9% Normal Saline (100mL Bag) 100 ML 440 MG IV (03:28)
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
--- NOTE | 2024-10-10 03:35 | DCINST_ITS ---
Discharge Instructions DC O2, CPAP, BIPAP needs Home O2 Discharge instructions: No Dressing / Incision Discharge Activity: Return to Normal Activity, May Not Drive (while taking narcotic pain medications.) and May Shower May resume sexual activity in: 4-6 weeks Dressing / Incision Call your doctor if your incision/area has: Continuous Slow Oozing, Sudden Increased Bleeding, Increased Pain/ Swelling, Increased Redness and Foul Smelling Discharge Follow Up Care Please Follow Up With: Elda Mckenzie MD When: Call [phone] to make an appointment with your doctor in 6 weeks. If you had elevated blood pressure or 4th degree laceration, you will need to be seen in 2 weeks. Test Results: Test results from this visit will be discussed in further detail at your follow- up appointment, if applicable. Discharge Plan Admission Admit Date/Time: 10/08/24 19:22 Attending Provider: Elda Mckenzie Primary Care Provider: Care Physician,Ирина Primary Discharge Orders/Prescriptions Prescriptions: No Action PNV-DHA 27 mg iron-1 mg -300 mg capsule 1 cap PO DAILY vitamin B complex Capsule 1 cap PO QDAY famotidine [Pepcid] 20 mg tablet 20 mg PO BID Qty: 60 6RF cephalexin 500 mg capsule 500 mg PO ONCE Qty: 30 2RF Referrals / Follow Up: Care Physician,No Primary [Primary Care Provider] -
[2024-10-10] MEDS: Cefazolin 2 GM in 0.9% Normal Saline (100mL Bag) 100 ML IV (03:53)
--- NOTE | 2024-10-10 03:55 | PLAC_PTH ---
PATIENT: CECIL ROMANO LOC: [facility] U#:[id number] AGE/SX: 28/F ROOM: WP002 RE10/08/[address]: Dr. Elda Mckenzie MD : 1995 BED: 1 DIS: 10/11/2024 SPEC #: [id number] RECD: 10/10/24 04:30 STATUS: LOLA REAlysia #: [id number] REKHA: 10/10/24 03:[address]: Elda Mckenzie DEPT: SURGICAL PATHOLOGY RECD BY: Delano Tang ENTERED: 10/10/24 10:24 SP TYPE: PLACENTA OTHR DR: Dr. Audra De La Vega, DO No Primary Care Phys Tissues: A - Placenta, NOS Procedures: Surgery Specimen Level V HEADER OPERATION: Vaginal delivery PRE-OP DIAGNOSIS: Sepsis in TISSUE SUBMITTED: A- Placenta MICROSCOPIC DIAGNOSIS A. Placenta, (gestation age of 39 weeks/2 days), vaginal delivery: * Circumvallate inserted membranes with acute chorioamnionitis * Eccentrically inserted and trivascular umbilical cord with acute funisitis * Mature (third trimester, consistent with the stated gestational age of 39 weeks/2 days) placenta with slight acute chorioamnionitis A. MICROSCOPIC DESCRIPTION Slides are reviewed. GROSS DESCRIPTION A. Received in formalin labeled with the patient's name and date of is a 389.5 g, 13.5 x 11.5 x 4.2 cm pale, ovoid placental disc. The membranes are galo-pink and translucent with possible, circumvallate insertion. The partially detached, trivascular umbilical cord measures 24.2 in length by 0.9-1.3 in diameter with possible, furcate insertion (versus iatrogenic detachment), 3.7 cm from the disc edge. The surface is ddyo-euy-dlep and somewhat fibrotic with patchy, yellow-green discoloration. The maternal surface is pale galo-pink and complete with patchy fibrin (<5%). Sections have pale galo-pink somewhat gritty, spongy parenchyma with focal fibrosis. 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
[2024-10-10] MEDS: Oxytocin 15 Units/NS 250ml 15 UNITS/250 ML IV.SOLN 83 UNITS IV (04:00)
[2024-10-10 05:11] LABS: Pathology Specimen OB SEE PATHOLOGY REPORT
--- NOTE | 2024-10-10 14:45 | CASEMGMT ---
Social Work Assessment Labor and Delivery Unit Patient Address: [address] [place] [id number] Phone number: [phone] Date of Referral: 10/09/24 Time of Referral:? 0541 Referred By: Dr. De La Vega Date of Intervention: ??10/10/24 Time of Intervention:? 1300 Reason for Referral:? hx of trauma Rianna completed chart review and acknowledges social work consult due to maternal history of trauma. Rianna presented to bedside and introduced self to mother of baby (ANGELIC- Kirti). Also present in the room was MOB's sister and then her mother presented to room. Sw offered to come back at a different time, but MOB asked to meet with rianna now. Sw explained reason for sw involvement and completed psychosocial assessment. History obtained from: medical records, MOB Household composition: ANGELIC states that residing in the family home is MOB, father of baby (FOB- Zain) and when ready for discharge. MOB denies any problems or concerns with housing, stating that it is safe and secure. Patient's parent/guardian status:? ANGELIC states that she and FOB have been together for 4 years after meeting each other at work. This is first baby for parents together. No concerns reported of domestic violence or intimate partner violence. Medical History: ?ANGELIC is 28 year old female who is 1, para 0- now 1 following labor and delivery. ANGELIC received care with janitor head and then transferred care to [facility]. ANGELIC presented to hospital for induction of labor and delivered baby via vaginal delivery on 10/10/24 at 39 weeks gestation. Baby boy, named Cam Post, was born weighing 6lb 2oz and had apgars of 4, 6, and 8 at one, five and ten minutes of life, respectfully. Baby required transfer of care to [facility] due to respiratort distress, and there is no discharge date identified at this time. ANGELIC states that she does not have a transit planning director chosen at this time. Educational Status:?ANGELIC obtained her GED, and states that FOB completed 8th grade which is common in [facility] culture, and she is not sure if he got his GED or not. Financial Status: Both parents are gainfully employed outside of the home working for [employer]. Infant Supplies:?? All necessary baby supplies obtained, including: car seat, safe sleep space, clothes, diapers and wipes. MOB states that she does not have a breast pump. Sw encouraged MOB to talk to on how to obtain one through her insurance. Childcare/Caregiver(s):? MOB states that when she has to go to the office for work she will have family members watch baby, but other than that she will be the primary caregiver to baby. Transportation:?? Both parents drive and have reliable means of transportation. Programs/Agencies Involved: ??Parents are not connected to any community agencies that provide financial assistance. ? Children Services/Legal Issues:?No history of children services involvement, no issues or concerns warranting referral to be made at this time. ?? Behavioral Health Issues: ??Mental Health History:???MOB states that JUAN does not have any mental health history or diagnoses. WHen sw asked MOB if she has any mental health history, trauma, anxiety or depression MOB denies. Rianna stated that sw notes that ANGELIC had some trauma during her due to having a kidney stone that caused sepsis to the point where MOB had to be life flighted from hospital. Rianna stated that sw also recognizes that MOB had a traumatic delivery and baby required transfer of care to a higher level of care hospital. Sw explained to ANGELIC that due to these traumatic experiences, as well as any other traumas she may have experienced in her life, she may be more at risk for experiencing symptoms. Sw opened the door for MOB to discuss any lifetime experiences, however MOB did not do so. Substance Use History: No substance use prior to and during . ?? Family History: No family history of addiction or significant mental health history. ? Drug Screens: ??No drug screens observed while completing chart review. Family/Social Stressors:? MOB denied any issues, concerns or stressors at this time. Sw asked MOB if she has any questions regarding baby being admitted to [facility], and MOB said no. Support Systems: MOB states that FOB and both of their families are supportive. Depression/Shaken Baby/Safe Sleeping:? Sw educated MOB at length regarding signs and symptoms of baby blue and depression and anxiety. Sw asked MOB what she would do if she felt as though she was struggling with any symptoms. MOB said that she would talk to family, but when pressed further when discussing severity of symptoms, MOB stated that she would talk to her OBGYN providers at [facility]. Sw educated MOB on shaken baby prevention and ABCs of safe Sleep, MOB expressed understanding. ASSESSMENT:? MOB admitted following labor and delivery of . MOB has history of trauma and did experience a some trauma during due to kidney stone that caused sepsis, a traumatic delivery and baby required transfer to [facility]. Due to these issues sw explained to MOB that she is more at risk for mood symptoms. MOB acknowledged understanding, but did not open up regarding any trauma she has experienced in her lifetime. MOB answered questions asked during completion of assessment, but did not elaborate on answers. Parts of conversation felt forced and sw did not want to push. MOB has natural supports in place and all necessary baby items for baby. PLAN:? No other services requested or indicated. MOB and baby to be discharged when medically ready. Parents were provided literature regarding: signs and symptoms of baby blues and mood and anxiety disorders, Help Me Grow, shaken baby prevention, ABCs of safe sleep and a list of county resources that are available for them should any needs present themselves. Mickey Workman, DIRECTOR OF CUSTOMER ACQUISITION, SHEARER SCREEN MEASURER AND TRIMMER
[2024-10-11] VITALS: BP 98/70; PULSE 85; RESP 17; TEMP 36.7; O2SAT 97
[2024-10-11 04:00] VITALS: BP 92/66; PULSE 79; RESP 17; TEMP 37.1; O2SAT 100
[2024-10-11 08:15] VITALS: BP 98/86; PULSE 100; RESP 16; TEMP 36.6; O2SAT 99
--- NOTE | 2024-10-11 08:27 | PCM.PN.CNM ---
Subjective Subjective Patient doing well without complaints. Tolerating PO. Ambulating and voiding without difficulty. Feeding well. Denies chest pain, shortness of breath, calf pain/swelling, fevers, chills, lightheadedness. Objective Data Objective Data Vital Signs: Vital Signs Temp Pulse Resp BP Pulse Ox O2 Del Method 98.7 F 79 17 92/66 100 Room Air 10/11/24 04:00 10/11/24 04:00 10/11/24 04:00 10/11/24 04:00 10/11/24 04:00 10/11/24 04:00 Oxygen Delivery Method Room Air Weight: 156 lb 6.4 oz Body Mass Index (BMI) 26.8 Intake & Output: Intake and Output for Last 24 Hours 10/09/24 10/10/24 10/11/24 23:59 23:59 23:59 Intake Total 2463.48 / 2463.48 1926.37 / 1926.37 Output Total 100 / 100 400 / 400 Balance 2363.48 / 2363.48 1526.37 / 1526.37 Lab / Micro Data 10/08/24 19:40 Physical Exam Const alert and oriented x3 Resp normal respiratory effort and normal air movement GI normal to inspection, nondistended, normoactive bowel sounds Back/Spine no CVA tenderness and normal ROM Extremity normal to inspection and full ROM Skin no rashes or lesions noted Psych mental status grossly normal Assessment & Plan (1) Vaginal delivery: COMMENT: IOL 39 borderline milind retained membranes boy (2) Nephrolithiasis: COMMENT: stent in place, stone intact. urology recommends 39 week IOL in order to have stent removed, scheduled for 10/23. PLAN: keflex until stent removal. consulted with YINKA PLAN: Plan s/p PPD # 1 1. routine post delivery care 2. breast feeding- support given 3. rh positive 4. rubella immune 5. d/c home today
--- NOTE | 2024-10-14 15:36 | PCM.DC.SUM ---
Providers Date of Admission: 10/08/24 Primary Care Physician: Ирина Primary Care Phys Reason For Visit: INDUCTION FOR LABOR & DELIVERY Diagnosis Discharge Diagnosis (1) Vaginal delivery: Status: Acute Code(s): O80 - Encounter for full-term uncomplicated delivery (2) Nephrolithiasis: Status: Acute Code(s): N20.0 - Calculus of kidney Medications at Discharge Home Medications multivitamin no.47-iron fum 27 mg-folate no.1 1 mg-dha 300 mg capsule (PNV-DHA) 1 cap PO DAILY 03/07/24 vitamin B complex 1 cap PO QDAY 03/07/24 famotidine 20 mg tablet (Pepcid) 20 mg PO BID #60 tabs 09/01/24 cephalexin 500 mg capsule 500 mg PO ONCE kidney stones #30 caps 09/25/24 Hospital Course Summary of Care Provided Hospital Course: Patient presented for induction of labor secondary to history of sepsis in the , kidney stone, and stent in place. Borderline RM. Patient underwent induction of labor with Cytotec followed by Davis bulb and then proceeded to complete dilation. Patient delivered via spontaneous vaginal delivery and postoperatively she had a routine recovery and was ambulating well tolerating p.o. and having adequate pain control with oral medications. She was stable for discharge to home on postop day #2. Weight / BMI Weight Weight: 156 lb 6.4 oz Body Mass Index (BMI) 26.8 ABG / Lab / Microbiology Data 10/08/24 19:40 D/C Instructions May resume sexual activity in: 4-6 weeks Call your doctor if your incision/area has: Continuous Slow Oozing, Sudden Increased Bleeding, Increased Pain/ Swelling, Increased Redness and Foul Smelling Discharge DC O2, CPAP, BIPAP Needs Home O2 Discharge instructions: No Please Follow Up With: Elda Mckenzie MD When: Call [phone] to make an appointment with your doctor in 6 weeks. If you had elevated blood pressure or 4th degree laceration, you will need to be seen in 2 weeks. Meaningful Use Info Meaningful Use Meaningful Use Diagnoses (Choose all that apply): None applicable Discharge Plan Admission Admit Date/Time: 10/08/24 19:22 Attending Provider: Elda Mckenzie Primary Care Provider: Care Physician,Ирина Primary Instructions Patient Instructions: After a Vaginal Delivery (WP), Breastfeed Common Questions Discharge Orders/Prescriptions Prescriptions: No Action PNV-DHA 27 mg iron-1 mg -300 mg capsule 1 cap PO DAILY vitamin B complex Capsule 1 cap PO QDAY famotidine [Pepcid] 20 mg tablet 20 mg PO BID Qty: 60 6RF cephalexin 500 mg capsule 500 mg PO ONCE Qty: 30 2RF Referrals / Follow Up: Care Physician,No Primary [Primary Care Provider] - Disposition Disposition (needs filled in before D/C Order can be placed): Home, Self Care
--- NOTE | 2024-10-17 13:51 | NURSING ---
F/up phone call attempted-- no ans, LVM
== END 2024-10-11 08:52 | disposition home or self-care (01) | DRG 807 ==
PROVIDERS: Admitting Provider Obstetrics & Gynecology; Referring Provider Obstetrics & Gynecology; Visit Provider Obstetrics & Gynecology
DX: O99.892 Other specified diseases and conditions complicating childbirth (principal); Z37.0 Single live birth; N20.0 Calculus of kidney; Z96.0 Presence of urogenital implants; O70.1 Second degree perineal laceration during delivery; Z86.19 Personal history of other infectious and parasitic diseases; Z3A.39 39 weeks gestation of pregnancy
CPT/HCPCS: 59025; 59050; 85025; 86780; 86850; 86900; 86901; 88307; 99221; A4216; G0378; J2405